=== PATIENT | male | born 1955 | race Caucasian/White ===

== ENCOUNTER 2021-01-22 09:01 | Outpatient (REF) | payer MEDICARE, SELFPAY ==
--- NOTE | ~2021-01-22 | XR_ITS ---
EXAMINATION: XR KNEE-BILATERAL CLINICAL INFORMATION: Pain in unspecified knee. COMPARISON: None TECHNIQUE: Upright frontal views of both knees. Lateral and patellofemoral views of both knees. FINDINGS: Right knee: The bony alignments are intact. Marked decrease joint space, subchondral sclerosis and osteophyte formations, consistent with severe medial and moderate to severe lateral compartmental and patellofemoral compartmental osteoarthrosis is seen. Small suprapatellar effusion is noted. Left knee: Decrease joint space, subchondral sclerosis, osteophyte formations, consistent with avhn-lu-qzllvjnd medial and lateral compartmental osteoarthrosis is present. The patellofemoral joint is normal. No evidence of any joint effusion. XR/XR knee standing BI IMPRESSION: 1. The right knee shows severe medial and moderate to severe lateral compartmental and patellofemoral osteoarthrosis. Small suprapatellar effusion is also noted. 2. The left knee shows ignq-lw-dgmcehfy medial and lateral compartmental osteoarthrosis and normal-appearing patellofemoral joint and no evidence of any effusion.
--- NOTE | ~2021-01-22 | XR_ITS ---
EXAMINATION: XR KNEE-BILATERAL CLINICAL INFORMATION: Pain in unspecified knee. COMPARISON: None TECHNIQUE: Upright frontal views of both knees. Lateral and patellofemoral views of both knees. FINDINGS: Right knee: The bony alignments are intact. Marked decrease joint space, subchondral sclerosis and osteophyte formations, consistent with severe medial and moderate to severe lateral compartmental and patellofemoral compartmental osteoarthrosis is seen. Small suprapatellar effusion is noted. Left knee: Decrease joint space, subchondral sclerosis, osteophyte formations, consistent with dzph-yd-rnqtjbxc medial and lateral compartmental osteoarthrosis is present. The patellofemoral joint is normal. No evidence of any joint effusion. XR/XR knee LT 2V IMPRESSION: 1. The right knee shows severe medial and moderate to severe lateral compartmental and patellofemoral osteoarthrosis. Small suprapatellar effusion is also noted. 2. The left knee shows gnie-vs-zhiauuhk medial and lateral compartmental osteoarthrosis and normal-appearing patellofemoral joint and no evidence of any effusion.
--- NOTE | ~2021-01-22 | XR_ITS ---
EXAMINATION: XR KNEE-BILATERAL CLINICAL INFORMATION: Pain in unspecified knee. COMPARISON: None TECHNIQUE: Upright frontal views of both knees. Lateral and patellofemoral views of both knees. FINDINGS: Right knee: The bony alignments are intact. Marked decrease joint space, subchondral sclerosis and osteophyte formations, consistent with severe medial and moderate to severe lateral compartmental and patellofemoral compartmental osteoarthrosis is seen. Small suprapatellar effusion is noted. Left knee: Decrease joint space, subchondral sclerosis, osteophyte formations, consistent with oqvb-cv-jngmrink medial and lateral compartmental osteoarthrosis is present. The patellofemoral joint is normal. No evidence of any joint effusion. XR/XR knee RT 2V IMPRESSION: 1. The right knee shows severe medial and moderate to severe lateral compartmental and patellofemoral osteoarthrosis. Small suprapatellar effusion is also noted. 2. The left knee shows rajk-sy-yinfwdgx medial and lateral compartmental osteoarthrosis and normal-appearing patellofemoral joint and no evidence of any effusion.
== END 2021-01-22 09:02 | disposition home or self-care (01) ==
LOC: HO.HOSX 09:01
PROVIDERS: Visit Provider Orthopaedic Surgery
DX: M17.0 Bilateral primary osteoarthritis of knee (principal)
CPT/HCPCS: 73560; 73565; 99202

== ENCOUNTER → 2021-04-10 09:58 | Outpatient (BNVA) | payer MEDICARE, SELFPAY | PROVIDERS: PCP Internal Medicine; Visit Provider Orthopaedic Surgery | DX: Z01.812 Encounter for preprocedural laboratory examination (principal); Z01.810 Encounter for preprocedural cardiovascular examination ==

== ENCOUNTER → 2021-05-10 13:16 | Outpatient (BNVA) | payer MEDICARE, SELFPAY | PROVIDERS: Visit Provider Physician Assistant | DX: Z01.818 Encounter for other preprocedural examination (principal); M17.31 Unilateral post-traumatic osteoarthritis, right knee; T14.90XS Injury, unspecified, sequela; M21.161 Varus deformity, not elsewhere classified, right knee | CPT/HCPCS: 99212 ==

== ENCOUNTER 2021-05-14 14:00 | Outpatient (RCR) | payer MEDICARE, SELFPAY ==
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
--- NOTE | 2021-05-14 15:33 | MHC.PT.DC ---
[facility] [place] Office [place] Office [place] Office [address] [phone] F: [phone] F: [phone] F: [phone] F: [phone] Physical Therapy Discharge Report Diagnosis: prehab for TKA Date of Surgery: n/a Date of Evaluation: 04/24/21 Date of Discharge: 05/14/21 Treatments to Date: 3 Cancellations to Date: 0 No Shows to Date: 0 Discharge Status: Discharge Summary: Pt is scheduled for R TKA tomorrow 05/15/2021. He has participated in prehab and is now independent in a basic strengthening program. He is aware of the importance of continuing this program post op. Due to plan for surgery tomorrow skilled PT is no longer indicated at this time. Pt will benefit from skilled PT services after his surgery. Electronically signed by: Aline Sargent, PT, DPT, ATC Please sign and return to therapist. Thank you for your referral.
== END 2021-05-14 15:33 | disposition home or self-care (01) ==
LOC: HO.PTCHIC 14:00
PROVIDERS: PCP Internal Medicine; Visit Provider Orthopaedic Surgery
DX: M17.31 Unilateral post-traumatic osteoarthritis, right knee (principal)
CPT/HCPCS: 97110; 97161

== ENCOUNTER 2021-05-15 06:13 | Inpatient (IN) | payer MEDICARE, SELFPAY ==
[2021-05-08 12:04] VITALS: BP 161/81; PULSE 87; RESP 20; O2SAT 98; BMI 25.0
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
[2021-05-08 14:48] LABS: MRSA Nasal PCR NEGATIVE (Negative); SA Nasal PCR NEGATIVE (Negative)
[2021-05-15] VITALS (18 sets, daily range): BP systolic 94–162; BP diastolic 49–88; PULSE 64–89; RESP 16–18; TEMP 36.3–37.2; O2SAT 99–100
--- NOTE | ~2021-05-15 | XR_ITS ---
EXAMINATION: XR KNEE, RIGHT CLINICAL INFORMATION: Right knee replacement COMPARISON: Previous x-ray January 2021 TECHNIQUE: Two views of the right knee. FINDINGS: There is a new 3 component right knee replacement in satisfactory position. No fracture or dislocation is seen. There are postoperative changes to the soft tissues. XR/XR knee RT 2V IMPRESSION: Satisfactory appearance of right knee replacement.
[2021-05-15] MEDS: Lactated Ringers 1,000 ML 100 ML IVCONT (07:01)
[2021-05-15 07:05] LABS: COVID-19 Test Negative (Negative); IDNOW Serial# 16C4AD1C
--- NOTE | 2021-05-15 07:40 | MHC.SHP ---
Pre-Procedural Eval Section A Date of Service: 05/15/21 The patient is an INPATIENT: No Changes since office visit: Yes Patient answered all questions; No Cold of Flu in the past 2 weeks, No New Medical Problems and No Changes in Medication The History & Physical has been completed within 30 days and I have reviewed it.: Yes Section B Chief Complaint: RT TKA Allergies: Allergies Allergy/AdvReac Type Severity Reaction Status Date / Time cortisone Allergy Anaphylaxis Verified 05/15/21 07:09 Plan I have reviewed the history and physical and performed a pertinent physical examination on my patient. No changes have occurred unless specified.
--- NOTE | 2021-05-15 09:40 | PM.OP ---
Brief Operative Note Date of Service: 05/15/21 Pre-op diagnosis: right knee OA Post-op diagnosis: same Procedure: Right TKA Implants: [place] triathalon press fit cruciate retaining 06/20/11 Surgeon: Rey Orlando MD Anesthesia: regional and spinal Was an Veterinary Surgery Technician used for this Procedure?: Yes Veterinary Surgery Technician: Chapincito Gilbert Estimated blood loss (mL): 150 IV fluids (mL): 1,000 Pathology: other Condition: stable Disposition: PACU
--- NOTE | 2021-05-15 09:44 | W.PM.OPN ---
Operative Note Operative Note Date of Service: 05/15/21 Narrative: Date of Service: 05/15/21 Pre-op diagnosis: right knee OA Post-op diagnosis: same Procedure: Right TKA Implants: [place] triathalon press fit cruciate retaining 06/20/11 Surgeon: Rey Orlando MD Anesthesia: regional and spinal Was an Performance Test Architect used for this Procedure?: Yes Performance Test Architect: Chapincito Gilbert Estimated blood loss (mL): 150 IV fluids (mL): 1,000 Pathology: other Condition: stable Disposition: PACU Procedure in detail: The patient was brought to the operating room and prepped and draped in standard sterile fashion. A time-out was called to identify proper site proper procedure proper surgeon and IV antibiotics were administered. 1 g of IV tranexamic acid was administered. I began by making a midline incision to the retinaculum and performed a medial parapatellar arthrotomy. The patella was translated laterally and the knee was flexed up. The medial compartment was entyirely eburnated with a depressed medial p[lateau . I performed a small medial peel and resected the infrapatellar fat pad. Leavenworth's line was then used to drill my intramedullary femoral guide and my distal femur cut of 10 mm was made in 5 degrees of valgus while protecting the soft tissues. I then measured a # 4 femur and placed my cutting guide and made my anterior posterior and chamfer cuts protecting the soft tissues at all times. Once I was satisfied with my cuts I turned my attention to the tibia. I removed the meniscus medially and laterally and , using an external cutting guide, in line with the tibial crest and the third ray, I made my distal tibial cut in 3 deg slope of while protecting the PCL the posterior soft tissues at all times. An extension block was used to confirm appropriate amount of bony resection. I then sized a #5 tibia and once I was satisfied that there was complete tibial coverage I placed my trial and with the trial femur in place took the knee through range of motion. I was satisfied with the extension and flexion as well as the stability at 0, 30 and 90 degrees. The knee was well balanced. I then turned my attention to the patella where I removed 1 cm from the undersurface of the patella and then trialed a 32a patellar button. Again the knee was taken through range of motion I was satisfied with the tracking. I returned to the femur and drilled my femoral lug holes and prepared the tibia. A femoral bone plug was placed and the knee was irrigated copiously. I then press fit the patella, tibia and femur in standard fashion. I trialed different inserts until I selected a #12 insert. The final insert was placed and a 3 minutes iodine soak with local TXA was performed. The knee was then closed with a running Quill suture, a 3 0 Vicryl and keily on the skin. Patient was then placed in sterile dressing and brought to recovery room in stable condition there were no known complications.
[2021-05-15] MEDS: Dextrose 5 % and 0.45 % NaCl 1,000 ML 80 ML IVCONT ×2 (10:24→21:18)
[2021-05-15] MEDS: oxyCODONE HCl Immed Release 5 MG TABLET PO ×3 (13:57→23:15)
[2021-05-15] MEDS: Acetaminophen 325 MG TABLET 975 MG PO (13:57)
[2021-05-15] MEDS: ceFAZolin Sodium/Dextrose,Iso 2 GM/50 ML PIGGYBACK IV (14:17)
[2021-05-15] MEDS: HYDROmorphone HCl 0.5 MG/0.5 ML SYRINGE IVPUSH (15:10)
[2021-05-15] MEDS: ondansetron HCL 4 MG/2 ML VIAL IVPUSH ×2 (15:17→17:53)
[2021-05-15] MEDS: HYDROmorphone HCl 1 MG/ML SYRINGE 0.25 MG IVPUSH (19:42)
[2021-05-15] MEDS: oxyCODONE HCl ER 10 MG TAB.ER.12H PO (21:17)
[2021-05-15] MEDS: Docusate Sodium 100 MG CAPSULE PO (21:17)
[2021-05-15] MEDS: Celecoxib 200 MG CAPSULE PO (21:17)
[2021-05-15] MEDS: Acetaminophen 325 MG TABLET 650 MG PO (22:32)
[2021-05-16] VITALS (7 sets, daily range): BP systolic 137–180; BP diastolic 64–84; PULSE 76–88; RESP 18; TEMP 36.1–37.1; O2SAT 100
[2021-05-16] MEDS: HYDROmorphone HCl 1 MG/ML SYRINGE 0.25 MG IVPUSH ×2 (00:49→05:13)
[2021-05-16] MEDS: oxyCODONE HCl Immed Release 5 MG TABLET PO ×4 (03:13→23:19)
[2021-05-16 06:23] LABS: Basophils Percent Auto 0.1 % (0-2); Eosinophils Percent Auto 0.1 % (0-4); Hematocrit 34.6 % (42.0-52.0); Imm Gran Abs Auto 0.06 X10*3/uL (0.00-0.03); Imm Gran Pct Auto 0.5 % (0.0-0.4); Lymphocytes Absolute Auto 1.3 X10*3/uL (1.2-4.9); Lymphocytes Percent Auto 10.2 % (20-40); MANUAL DIFF FLAG SCAN; Mean Corpuscular HGB Conc 34.7 g/dl (31.0-36.0); Mean Corpuscular Hemoglobin 31.2 pg (27.0-33.0); Mean Corpuscular Volume 89.9 fL (80.0-98.0); Mean Platelet Volume 9.5 fL (9.4-12.4); Monocytes Absolute Auto 1.9 X10*3/uL (0.1-1.2); Monocytes Percent Auto 14.5 % (2-11); Neutrophils Absolute Auto 9.8 x10*3/uL (2.0-8.3); Neutrophils Percent Auto 74.6 % (45-73); Platelet Count 203 X10*3/uL (160-400); Red Blood Count 3.85 X10*6/uL (4.60-5.80); Red Cell Distribution Width 12.7 % (11.0-16.0); SCAN SMEAR FLAG 1; White Blood Count 13.1 X10*3/uL (4.8-10.8)
[2021-05-16 06:41] LABS: SLIDE REVIEW VERIFIED
[2021-05-16 06:46] LABS: Anion Gap 9 (12-20); Blood Urea Nitrogen 13 mg/dL (9-16); Calcium 8.7 mg/dL (8.4-10.2); Carbon Dioxide 26 mmol/L (22-29); Chloride 98 mmol/L (96-108); Creatinine Clr Calc Pharmacy 99.7; Estimated Glomerular Filt Rate > 60; Glucose Fasting 142 mg/dL (60-99); Potassium 4.3 mmol/L (3.3-5.1); Sodium 129 mmol/L (135-145)
--- NOTE | 2021-05-16 07:42 | PM.PNORT ---
Subjective Subjective Date of Service: 05/16/21 Interval history: POD1 s/p RTKA. Patient is resting in bed comfortably. No overnight events. Pain is managed. No additional complaints. Physical Exam Vital Signs: Vital Signs: Last Vital Signs Temp 97 F 05/16/21 06:53 Pulse 86 05/16/21 07:32 Resp 18 05/16/21 06:53 BP 137/64 05/16/21 07:32 Pulse Ox 100 05/16/21 07:32 BMI result Body Mass Index 25.0 Const: General: cooperative, healthy appearing and no acute distress Resp: Effort & Inspection: normal respiratory effort and able to speak in complete sentences Cardio: Rate: regular rate Peripheral pulses: Peripheral pulses 2+ throughout GI: Palpation (GI): Soft to palpation Skin: Lesions: no lesions Rashes: no rashes Extrem: Other: Right knee no drainage or erythema. Aquacel is clean, dry, and intact. NVI. Procedures Date of Service Date of Service: 05/16/21 Progress Note: A&P Assessment and plan (1) S/P total knee arthroplasty: Status: Acute Plan Continue pain mgmnt Begin ASA for dvt ppx begin PT for RTKA Dispo planning-Pending PT eval, pain mgmnt Fall Risk Details Current Medications: Current Medications Acetaminophen (Acetaminophen 325 Mg Tablet) 650 mg PO Q6H PRN PRN Reason: Pain, Mild (Pain Scale 1-3) Last Admin: 05/15/21 22:32 Dose: 650 mg Documented by: Celecoxib (Celecoxib 200 Mg Capsule) 200 mg PO BID [facility] Last Admin: 05/15/21 21:17 Dose: 200 mg Documented by: Docusate Sodium (Docusate Sodium 100 Mg Capsule) 100 mg PO BID [facility] Last Admin: 05/15/21 21:17 Dose: 100 mg Documented by: Hydromorphone HCl (Hydromorphone Hcl 0.5 Mg/0.5 Ml Syringe) 0.5 mg IVPUSH Q5M PRN; Protocol PRN Reason: Pain, Severe (Pain Scale 7-10) Last Admin: 05/15/21 15:10 Dose: 0.5 mg Documented by: Hydromorphone HCl (Hydromorphone Hcl 1 Mg/Ml Syringe) 0.25 mg IVPUSH Q4H PRN; Protocol PRN Reason: Pain, Severe (Pain Scale 7-10) Last Admin: 05/16/21 05:13 Dose: 0.25 mg Documented by: Dextrose/Sodium Chloride (D51/2ns) 1,000 mls @ 80 mls/hr IVCONT .[id number] [facility] Last Admin: 05/15/21 21:18 Dose: 80 mls/hr Documented by: Cefazolin Sodium/Dextrose (Ancef) 2 gm in 50 mls @ 100 mls/hr IV POSTOP@1400 [facility] Last Infusion: 05/15/21 16:26 Dose: Infused Documented by: Ondansetron HCl (Ondansetron Hcl 4 Mg/2 Ml Vial) 4 mg IVPUSH Q8H PRN PRN Reason: Nausea and Vomiting Last Admin: 05/15/21 17:53 Dose: 4 mg Documented by: Oxycodone HCl (Oxycodone Hcl Immed Release 5 Mg Tablet) 5 mg PO Q4H PRN PRN Reason: Pain, Moderate (Pain Scale 4-6 Last Admin: 05/16/21 03:13 Dose: 5 mg Documented by: Oxycodone HCl (Oxycodone Hcl Er 10 Mg Tab.Er.12h) 10 mg PO BID [facility] Last Admin: 05/15/21 21:17 Dose: 10 mg Documented by: Sodium Chloride (0.9 % Sodium Chloride Flush 3 Ml Syringe) 3 ml IVFLUSH QSHIFT [facility] Last Admin: 05/16/21 01:03 Dose: Not Given Documented by: Time Spent With Patient Time: Total time spent is greater than 50% in coordination of care (as documented) at patient's floor/unit and/or counseling patient: Time with patient: less than 15 minutes Quality Stroke Does the patient have a stroke diagnosis?: No VTE Prior VTE?: No VTE Risk Level:: Surgical - very high VTE Device Contraindication: N/A - Device Ordered VTE Drug Contraindication: N/A - Med Ordered
[2021-05-16] MEDS: Celecoxib 200 MG CAPSULE PO ×2 (07:46→20:14)
[2021-05-16] MEDS: oxyCODONE HCl ER 10 MG TAB.ER.12H PO ×2 (07:46→20:13)
[2021-05-16] MEDS: Docusate Sodium 100 MG CAPSULE PO ×2 (07:46→20:14)
--- NOTE | 2021-05-16 08:15 | HO.POSTANES ---
Post Anesthesia Evaluation Post Anesthesia Evaluation Vital Signs: Vital Signs Temp Pulse Resp BP Pulse Ox 05/16/21 07:32 86 137/64 100 05/16/21 06:53 97 F 86 18 137/64 100 05/16/21 03:59 98.7 F 88 18 151/66 H 100 05/15/21 23:32 98.9 F 81 18 162/71 H 100 Anesthesia: Spinal and Nerve Block Mental Status: Awake Pain Control: Satisfactory Nausea/Vomiting: None Hydration: Adequate Anesthesia-Related Issues: No Anes. Related Issues
--- NOTE | 2021-05-16 08:40 | MHC.CDI.CONC ---
CDI Concurrent Query Documentation Clarification: PHYSICIAN'S DOCUMENTATION REQUEST Date of Query: 05/16/21 0840 Patient Name: Jamey Jimenez Admit Date: 05/15/21 Dear Doctor, A review of the medical record indicates additional documentation may be needed. Please review below and update the documentation accordingly. Additional clinical indicators in the record include: Risk Factors/Clinical Indicators/Treatments Lab findings: sodium 129 L IV fluids Please indicate in your progress notes if you are in agreement that the above diagnosis is valid for this patient: Hyponatremia or other etiology of lab findings: Yes, [ ] is a valid diagnosis for this patient No, [ ] is a not a valid diagnosis for this patient The diagnosis of [ ] is not yet confirmed but remains a suspected condition (This option is only for use at the time of discharge or during a retrospective review.) Other (please specify) Unable to determine Use of terms such as suspected, likely, concern for, or probable (associated with a specific diagnosis that is being evaluated, monitored, or treated as if it exists) are acceptable and can be coded in the inpatient setting, when documented at the time of discharge. Thank you, Carolyn Brice [facility], CDIS Extension: [phone] Please use your independent medical judgment in providing your response. THIS QUERY IS PART OF THE PERMANENT MEDICAL RECORD
[2021-05-16] MEDS: Aspirin 325 MG TABLET PO ×2 (09:13→20:13)
--- NOTE | 2021-05-16 09:59 | MHC.CM.PN ---
PATIENT LIVES WITH /NEW HCP (IN CHART) HE IS INDEPENDENT WITH HIS ADLS. HE DOES USE OUTSIDE SERVICES FOR PHYSICAL THERAPY. HE IS AWARE OF P.T. RECOMMENDATIONS FOR HOME SERVICES AND CHOOSES [facility], NOW PLACED. HE IS AWARE THAT [facility] HAS BEEN UNABLE TO OFFER SERVICES OF RECENTLY, AND AGREEABLE TO WHICH EVER AGENCY CAN OFFER. PATIENT IS COVID VACCINATED WITH 3 MODERNA SHOTS. HE IS UNABLE TO RECALL THE DATES BUT WILL ASK FOR CASE MANAGEMENT IF HE FINDS OUT. CANE AND WALKER IN HOME IN PREPARATION FOR SURGERY. TO TRANSPORT HOME. IMM 3/2 IN CHART
[2021-05-16] MEDS: ondansetron HCL 4 MG/2 ML VIAL IVPUSH (10:23)
[2021-05-16] MEDS: Dextrose 5 % and 0.45 % NaCl 1,000 ML 80 ML IVCONT ×2 (10:23→23:15)
[2021-05-16] MEDS: 0.9 % Sodium Chloride Flush 3 ML SYRINGE IVFLUSH (23:16)
[2021-05-17] VITALS (9 sets, daily range): BP systolic 142–180; BP diastolic 57–88; PULSE 81–98; RESP 14–18; TEMP 36.1–37.1; O2SAT 98–100
[2021-05-17] MEDS: oxyCODONE HCl Immed Release 5 MG TABLET PO ×2 (03:02→13:20)
[2021-05-17] MEDS: Omeprazole 20 MG CAPSULE.DR PO (05:47)
[2021-05-17 06:33] LABS: Basophils Percent Auto 0.1 % (0-2); Eosinophils Percent Auto 0.1 % (0-4); Hematocrit 30.8 % (42.0-52.0); Hemoglobin 10.6 g/dl (14.0-18.0); Imm Gran Pct Auto 0.7 % (0.0-0.4); Lymphocytes Absolute Auto 1.1 X10*3/uL (1.2-4.9); Lymphocytes Percent Auto 7.2 % (20-40); MANUAL DIFF FLAG SCAN; Mean Corpuscular HGB Conc 34.4 g/dl (31.0-36.0); Mean Corpuscular Hemoglobin 31.2 pg (27.0-33.0); Mean Corpuscular Volume 90.6 fL (80.0-98.0); Mean Platelet Volume 9.9 fL (9.4-12.4); Monocytes Absolute Auto 1.8 X10*3/uL (0.1-1.2); Neutrophils Absolute Auto 11.9 x10*3/uL (2.0-8.3); Neutrophils Percent Auto 79.9 % (45-73); Platelet Count 184 X10*3/uL (160-400); Red Cell Distribution Width 12.5 % (11.0-16.0); SCAN SMEAR FLAG 1; White Blood Count 14.9 X10*3/uL (4.8-10.8)
[2021-05-17 06:52] LABS: Anion Gap 9 (12-20); Blood Urea Nitrogen 9 mg/dL (9-16); Calcium 8.5 mg/dL (8.4-10.2); Carbon Dioxide 24 mmol/L (22-29); Estimated Glomerular Filt Rate > 60; Glucose Fasting 129 mg/dL (60-99)
[2021-05-17 07:13] LABS: Chloride 96 mmol/L (96-108); Sodium 125 mmol/L (135-145)
[2021-05-17 07:30] LABS: SLIDE REVIEW VERIFIED
[2021-05-17] MEDS: Aspirin 325 MG TABLET PO ×2 (08:30→20:44)
[2021-05-17] MEDS: Celecoxib 200 MG CAPSULE PO ×2 (08:30→20:44)
[2021-05-17] MEDS: Docusate Sodium 100 MG CAPSULE PO ×2 (08:30→20:44)
[2021-05-17] MEDS: oxyCODONE HCl ER 10 MG TAB.ER.12H PO ×2 (08:30→20:44)
[2021-05-17] MEDS: lisinopriL 10 MG TABLET PO (08:31)
[2021-05-17] MEDS: 0.9 % Sodium Chloride Flush 3 ML SYRINGE IVFLUSH ×3 (08:31→20:47)
--- NOTE | 2021-05-17 08:35 | P.CONHOSP_ITS ---
History of Present Illness Data of Consult Service Date: 05/17/21 Primary Care Provider: Sharonda Parsons MD HPI Reason for consult: hyponatremia This is a 65 yo M with a PMH of HTN, GERD, OA who is admitted under the or thopedic services s/p R TKA. Medical consult requested for hyponatremia. Patient is seen and examined in his room. He reports some generalized weakness. Pain well controlled this morning. In regards to his oral intake, he rpeorts drinking about 1L of water since surgery. Denies chest pain, sob, abd pain, n/v. No fevers Review of Systems Review of Systems: negative except above [facility] Medical History Abnormal gait Anxiety Difficulty urinating GERD (gastroesophageal reflux disease) Hypertension Osteoarthritis Vertigo Pertinent family history: HTN in multiple family betters Surgical History H/O prostatectomy History of esophagogastroduodenoscopy (EGD) History of intestinal surgery History of tonsillectomy Hx of colonoscopy S/P colostomy Social History (Updated 05/17/21 @ 09:38 by Harris Amin MD) Are you a primary manager critical care to a significant other at home: No Do you presently have visiting nurse or other home services: No Alcohol intake: current Alcohol intake frequency: 0-2 drinks per day Patient Tobacco Use Status: Never used Tobacco Second Hand Smoke Exposure: No Substance Use Type: Marijuana service: No Current occupational status: employed 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 [employer] Allergies Allergy/AdvReac Type Severity Reaction Status Date / Time cortisone Allergy Anaphylaxis Verified 05/15/21 07:09 Active Medications: Current Medications Acetaminophen (Acetaminophen 325 Mg Tablet) 650 mg PO Q6H PRN PRN Reason: Pain, Mild (Pain Scale 1-3) Last Admin: 05/15/21 22:32 Dose: 650 mg Documented by: Aspirin (Aspirin 325 Mg Tablet) 325 mg PO BID [facility] Last Admin: 05/17/21 08:30 Dose: 325 mg Documented by: Celecoxib (Celecoxib 200 Mg Capsule) 200 mg PO BID [facility] Last Admin: 05/17/21 08:30 Dose: 200 mg Documented by: Docusate Sodium (Docusate Sodium 100 Mg Capsule) 100 mg PO BID [facility] Last Admin: 05/17/21 08:30 Dose: 100 mg Documented by: Hydromorphone HCl (Hydromorphone Hcl 0.5 Mg/0.5 Ml Syringe) 0.5 mg IVPUSH Q5M PRN; Protocol PRN Reason: Pain, Severe (Pain Scale 7-10) Last Admin: 05/15/21 15:10 Dose: 0.5 mg Documented by: Hydromorphone HCl (Hydromorphone Hcl 1 Mg/Ml Syringe) 0.25 mg IVPUSH Q4H PRN; Protocol PRN Reason: Pain, Severe (Pain Scale 7-10) Last Admin: 05/16/21 05:13 Dose: 0.25 mg Documented by: Lisinopril (Lisinopril 10 Mg Tablet) 10 mg PO DAILY [facility]; Protocol Last Admin: 05/17/21 08:31 Dose: 10 mg Documented by: Loratadine (Loratadine 10 Mg Tablet) 10 mg PO DAILY PRN PRN Reason: Allergic Symptoms Omeprazole (Omeprazole 20 Mg Capsule.Dr) 20 mg PO DAILY@0630 [facility] Last Admin: 05/17/21 05:47 Dose: 20 mg Documented by: Ondansetron HCl (Ondansetron Hcl 4 Mg/2 Ml Vial) 4 mg IVPUSH Q8H PRN PRN Reason: Nausea and Vomiting Last Admin: 05/16/21 10:23 Dose: 4 mg Documented by: Oxycodone HCl (Oxycodone Hcl Immed Release 5 Mg Tablet) 5 mg PO Q4H PRN PRN Reason: Pain, Moderate (Pain Scale 4-6 Last Admin: 05/17/21 03:02 Dose: 5 mg Documented by: Oxycodone HCl (Oxycodone Hcl Er 10 Mg Tab.Er.12h) 10 mg PO BID [facility] Last Admin: 05/17/21 08:30 Dose: 10 mg Documented by: Sodium Chloride (0.9 % Sodium Chloride Flush 3 Ml Syringe) 3 ml IVFLUSH [facility] Last Admin: 05/17/21 08:31 Dose: 3 ml Documented by: Home Medications Medication Instructions Recorded Confirmed Last Taken Type cetirizine 10 mg capsule (Zyrtec) 10 mg PO DAILY PRN 01/22/21 05/04/21 Unknown History lisinopril 10 mg tablet 10 mg PO DAILY 01/22/21 05/04/21 Unknown History pantoprazole 40 mg tablet,delayed 40 mg PO DAILY 01/22/21 05/04/21 Unknown History release Ca/Mg/Zinc PO 04/10/21 04/10/21 Unknown History ascorbic acid (vitamin C) 500 mg 500 mg PO DAILY 05/04/21 05/04/21 Unknown History tablet (Vitamin C) docusate sodium 100 mg capsule 100 mg PO DAILY 05/04/21 05/04/21 Unknown History (Colace) multivitamin 1 tab PO DAILY 05/04/21 05/04/21 Unknown History ibuprofen 200 mg capsule 400 mg PO Q8H PRN 05/08/21 05/08/21 Unknown History Physical Exam Vital Signs and Narrative: Vital Signs: Last Vital Signs Temp 97.6 F 05/17/21 03:59 Pulse 93 05/17/21 03:59 Resp 14 05/17/21 03:59 BP 180/70 H 05/17/21 03:59 Pulse Ox 99 05/17/21 03:59 BMI result Body Mass Index 25.0 Const: Other: Constitutional - Awake and Alert, No apparent distress Eyes - PERRLA, EOMI Cardiovascular - S1S2, RRR, No edema Respiratory - Normal lung expansion, Normal respiratory effort, No respiratory distress, CTA bilaterally Gastrointestinal - NT / ND; +BS; No rebound or guarding - No CVA tenderness Extremities - no calf tenderness bilaterally, no swelling Musculoskeletal - normal inspection Skin - Warm/Dry Neurological - Alert & oriented x3, No focal deficit Psychological - Appropriate affect Results Labs CBC and Chem 7: 05/17/21 05:56 05/17/21 05:56 Labs: Laboratory Results - last 24 hr 05/17/21 05/17/21 05:56 05:56 MCV 90.6 MCH 31.2 MCHC 34.4 RDW 12.5 Plt Count 184 MPV 9.9 Immature Gran % (Auto) 0.7 H Neut % (Auto) 79.9 H Lymph % (Auto) 7.2 L [place] % (Auto) 12.0 H Eos % (Auto) 0.1 Baso % (Auto) 0.1 Lymph # (Auto) 1.1 L [place] # (Auto) 1.8 H Eos # (Auto) 0.0 Baso # (Auto) 0.0 Abs Immat Gran (auto) 0.10 H Absolute Neuts (auto) 11.9 H Absolute Nucleated RBC 0.000 Nucleated RBC % (auto) 0.0 Smear Tech's Comments VERIFIED Anion Gap 9 L Estim Creat Clear Calc 111.0 Estimated GFR > 60 Fasting Glucose 129 H Calcium 8.5 Assessment and Plan (1) Hyponatremia: Status: Acute Plan This is a 65 yo M with a PMH of HTN, GERD, OA who is admitted s/p R TKA under the orthpedic services. Medical consult requested for hyponatremia. 1. Hyponatremia symptomatic with weakness hypovoluemic Stop D5-1/2 - done Check urine Osm, Na -- ordered Fluid restrict -- ordered repeat SNa around noon -- ordered 2. Uncontrolled HTN possibly due to pain continue lisinopril 3. GERD PPI Will follow along
[2021-05-17 10:55] LABS: Sodium 125 mmol/L (135-145)
[2021-05-17 11:19] LABS: Osmolality Urine 385 mosm/kg (373-1093)
[2021-05-17] MEDS: Acetaminophen 325 MG TABLET 650 MG PO (13:21)
--- NOTE | 2021-05-17 15:19 | MHC.CM.PN ---
PT DC CANCELLED DUE TO ABORMAL LABS
--- NOTE | 2021-05-17 20:25 | P.PNOP_ITS ---
Subjective Subjective Date of Service: 05/17/21 Interval history: POD 2 s/p RT TKA no overnight events resting in bed, had PT yesterday and did well Na levels are on the lower side, med consult placed. Physical Exam Vital Signs: Vital Signs: Last Vital Signs Temp 98.7 F 05/17/21 19:03 Pulse 85 05/17/21 19:03 Resp 18 05/17/21 19:03 BP 149/88 H 05/17/21 19:03 Pulse Ox 98 05/17/21 19:03 BMI result Body Mass Index 25.0 Const: General: cooperative, healthy appearing and no acute distress Resp: Effort & Inspection: normal respiratory effort and able to speak in complete sentences Cardio: Rate: regular rate Peripheral pulses: Peripheral pulses 2+ throughout GI: Palpation (GI): Soft to palpation Skin: General skin exam: no rashes or lesions noted Extrem: Other: incision clean dry and intact. [place] intact. No erythema or joint effusion. Calf supple nontender. Neurovascularly intact. Procedures Date of Service Date of Service: 05/17/21 Progress Note: A&P Assessment and plan (1) S/P total knee arthroplasty: Status: Acute Assessment and Plan: * Continue pain mgmnt * continue Aspirin for dvt ppx * continue PT for RT TKA * Dispo planning-Pending Na levels (2) Hyponatremia: Status: Acute Assessment and Plan: Med consult-recommend fluid restriction will recheck in the morning Fall Risk Details Current Medications: Current Medications Acetaminophen (Acetaminophen 325 Mg Tablet) 650 mg PO Q6H PRN PRN Reason: Pain, Mild (Pain Scale 1-3) Last Admin: 05/17/21 13:21 Dose: 650 mg Documented by: Aspirin (Aspirin 325 Mg Tablet) 325 mg PO BID [facility] Last Admin: 05/17/21 08:30 Dose: 325 mg Documented by: Celecoxib (Celecoxib 200 Mg Capsule) 200 mg PO BID [facility] Last Admin: 05/17/21 08:30 Dose: 200 mg Documented by: Docusate Sodium (Docusate Sodium 100 Mg Capsule) 100 mg PO BID [facility] Last Admin: 05/17/21 08:30 Dose: 100 mg Documented by: Hydromorphone HCl (Hydromorphone Hcl 0.5 Mg/0.5 Ml Syringe) 0.5 mg IVPUSH Q5M PRN; Protocol PRN Reason: Pain, Severe (Pain Scale 7-10) Last Admin: 05/15/21 15:10 Dose: 0.5 mg Documented by: Hydromorphone HCl (Hydromorphone Hcl 1 Mg/Ml Syringe) 0.25 mg IVPUSH Q4H PRN; Protocol PRN Reason: Pain, Severe (Pain Scale 7-10) Last Admin: 05/16/21 05:13 Dose: 0.25 mg Documented by: Lisinopril (Lisinopril 10 Mg Tablet) 10 mg PO DAILY [facility]; Protocol Last Admin: 05/17/21 08:31 Dose: 10 mg Documented by: Loratadine (Loratadine 10 Mg Tablet) 10 mg PO DAILY PRN PRN Reason: Allergic Symptoms Omeprazole (Omeprazole 20 Mg Capsule.Dr) 20 mg PO DAILY@0630 [facility] Last Admin: 05/17/21 05:47 Dose: 20 mg Documented by: Ondansetron HCl (Ondansetron Hcl 4 Mg/2 Ml Vial) 4 mg IVPUSH Q8H PRN PRN Reason: Nausea and Vomiting Last Admin: 05/16/21 10:23 Dose: 4 mg Documented by: Oxycodone HCl (Oxycodone Hcl Immed Release 5 Mg Tablet) 5 mg PO Q4H PRN PRN Reason: Pain, Moderate (Pain Scale 4-6 Last Admin: 05/17/21 13:20 Dose: 5 mg Documented by: Oxycodone HCl (Oxycodone Hcl Er 10 Mg Tab.Er.12h) 10 mg PO BID [facility] Last Admin: 05/17/21 08:30 Dose: 10 mg Documented by: Sodium Chloride (0.9 % Sodium Chloride Flush 3 Ml Syringe) [facility] Last Admin: 05/17/21 17:30 Dose: 3 ml Documented by: Time Spent With Patient Time: Total time spent is greater than 50% in coordination of care (as documented) at patient's floor/unit and/or counseling patient: Time with patient: less than 15 minutes Quality Stroke Does the patient have a stroke diagnosis?: No VTE Prior VTE?: No VTE Risk Level:: Surgical - very high VTE Device Contraindication: N/A - Device Ordered VTE Drug Contraindication: N/A - Med Ordered
[2021-05-18] MEDS: oxyCODONE HCl Immed Release 5 MG TABLET PO (03:14)
[2021-05-18 03:52] VITALS: BP 134/62; PULSE 98; RESP 101; TEMP 36.4; O2SAT 98
[2021-05-18 05:45] LABS: MANUAL DIFF FLAG NO
[2021-05-18 05:52] LABS: Basophils Percent Auto 0.3 % (0-2); Eosinophils Absolute Auto 0.1 X10*3/uL (0.0-0.4); Eosinophils Percent Auto 0.6 % (0-4); Hematocrit 28.7 % (42.0-52.0); Hemoglobin 9.9 g/dl (14.0-18.0); Imm Gran Abs Auto 0.05 X10*3/uL (0.00-0.03); Imm Gran Pct Auto 0.5 % (0.0-0.4); Lymphocytes Percent Auto 9.3 % (20-40); Mean Corpuscular HGB Conc 34.5 g/dl (31.0-36.0); Mean Corpuscular Hemoglobin 31.1 pg (27.0-33.0); Mean Corpuscular Volume 90.3 fL (80.0-98.0); Mean Platelet Volume 9.7 fL (9.4-12.4); Monocytes Absolute Auto 1.4 X10*3/uL (0.1-1.2); Monocytes Percent Auto 13.2 % (2-11); Neutrophils Percent Auto 76.1 % (45-73); Platelet Count 201 X10*3/uL (160-400); Red Blood Count 3.18 X10*6/uL (4.60-5.80); Red Cell Distribution Width 12.5 % (11.0-16.0); White Blood Count 10.5 X10*3/uL (4.8-10.8)
[2021-05-18] MEDS: Omeprazole 20 MG CAPSULE.DR PO (05:58)
[2021-05-18 06:47] VITALS: BP 133/63; PULSE 109; RESP 18; TEMP 36.1; O2SAT 100
[2021-05-18 07:01] LABS: Anion Gap 8 (12-20); Blood Urea Nitrogen 9 mg/dL (9-16); Calcium 8.8 mg/dL (8.4-10.2); Carbon Dioxide 30 mmol/L (22-29); Chloride 98 mmol/L (96-108); Creatinine Clr Calc Pharmacy 99.7; Estimated Glomerular Filt Rate > 60; Glucose Fasting 97 mg/dL (60-99); Potassium 4.5 mmol/L (3.3-5.1); Sodium 131 mmol/L (135-145)
[2021-05-18] MEDS: oxyCODONE HCl ER 10 MG TAB.ER.12H PO (07:53)
[2021-05-18] MEDS: Docusate Sodium 100 MG CAPSULE PO (07:53)
[2021-05-18] MEDS: Aspirin 325 MG TABLET PO (07:54)
[2021-05-18] MEDS: Celecoxib 200 MG CAPSULE PO (07:55)
[2021-05-18] MEDS: lisinopriL 10 MG TABLET PO (07:55)
[2021-05-18] MEDS: 0.9 % Sodium Chloride Flush 3 ML SYRINGE IVFLUSH (08:00)
--- NOTE | 2021-05-18 08:06 | P.DS_ITS ---
DS: Providers Provider Date of Service: 05/18/21 Date of admission: 05/15/21 06:13 Primary care physician: Sharonda Parsons MD Consults: 05/16/21 21:16 Consult to Hospitalist Routine Consulting Provider: Hospitalist Reason For Exam: ?hyponatremia DS: Diagnosis Discharge Diagnosis (1) S/P total knee arthroplasty: Status: Acute (2) Hyponatremia: Status: Acute DS: Summary Hospital Course Hospital Course: The patient underwent a successful right total knee arthroplasty, they were transferred to PACU and then to the floor to recover. During their stay, their vitals were stable, afebrile at 97 degrees. Patient had about of hyponatremia on postop day postop day 1 this was corrected with fluid restriction, H/H 9.9/28.7. POD 1 they were started on Aspirin 325mg po bid for DVT ppx, they also received Physical Therapy services twice a day. Prior to discharge, their dressing was changed, incision clean dry and intact, new Aquacel dressing applied and the plan was to be discharged home with VNA services. Time Spent with Patient Time attestation: Total time spent providing and/or coordinating discharge services: Discharge coordination time: Less than 30 minutes Quality: Stroke Does the patient have a stroke diagnosis?: No Physical Exam Vital Signs: Vital Signs: Last Vital Signs Temp 97 F 05/18/21 06:47 Pulse 109 H 05/18/21 06:47 Resp 18 05/18/21 06:47 BP 133/63 05/18/21 06:47 Pulse Ox 100 05/18/21 06:47 BMI result Body Mass Index 25.0 Const: General: cooperative, healthy appearing and no acute distress Resp: Effort & Inspection: normal respiratory effort and able to speak in complete sentences Cardio: Rate: regular rate Peripheral pulses: Peripheral pulses 2+ throughout GI: Palpation (GI): Soft to palpation Skin: Lesions: no lesions Rashes: no rashes Extrem: Other: Right knee Aquacel dressing clean dry and intact. No drainage. NVI. DS: Data Data Completed and Pending Completed studies during hospitalization [Text1]: Pending at discharge 05/15/21 09:14 Surgical [PTH] Routine Labs on day of discharge: Laboratory Results - last 24 hr 05/17/21 05/17/21 05/17/21 10:02 10:02 10:33 WBC RBC Hgb Hct MCV MCH MCHC RDW Plt Count MPV Immature Gran % (Auto) Neut % (Auto) Lymph % (Auto) [place] % (Auto) Eos % (Auto) Baso % (Auto) Lymph # (Auto) [place] # (Auto) Eos # (Auto) Baso # (Auto) Abs Immat Gran (auto) Absolute Neuts (auto) Absolute Nucleated RBC Nucleated RBC % (auto) Sodium 125 L Potassium Chloride Carbon Dioxide Anion Gap BUN Creatinine Estim Creat Clear Calc Estimated GFR Fasting Glucose Calcium Urine Osmolality 385 Ur Random Sodium 33.0 05/18/21 05/18/21 05:16 05:16 WBC 10.5 RBC 3.18 L Hgb 9.9 L Hct 28.7 L MCV 90.3 MCH 31.1 MCHC 34.5 RDW 12.5 Plt Count 201 MPV 9.7 Immature Gran % (Auto) 0.5 H Neut % (Auto) 76.1 H Lymph % (Auto) 9.3 L [place] % (Auto) 13.2 H Eos % (Auto) 0.6 Baso % (Auto) 0.3 Lymph # (Auto) 1.0 L [place] # (Auto) 1.4 H Eos # (Auto) 0.1 Baso # (Auto) 0.0 Abs Immat Gran (auto) 0.05 H Absolute Neuts (auto) 8.0 Absolute Nucleated RBC 0.000 Nucleated RBC % (auto) 0.0 Sodium 131 L Potassium 4.5 Chloride 98 Carbon Dioxide 30 H Anion Gap 8 L BUN 9 Creatinine 0.69 Estim Creat Clear Calc 99.7 Estimated GFR > 60 Fasting Glucose 97 Calcium 8.8 Urine Osmolality Ur Random Sodium Discharge Plan Discharge Patient Disposition: Home Health Service Discharge Diagnosis: Status post right TKA Referrals: Chapincito Gilbert PA-C [Physician Retort Firer] - 1 Week (05/31/2021 at 11:30am) Discharge Medications: New celecoxib 200 mg Capsule 200 mg PO BID 30 Days Qty: 60 0RF acetaminophen 325 mg Tablet 650 mg PO Q6H PRN (Reason: Pain, Mild (Pain Scale 1-3)) 30 Days Qty: 240 0RF aspirin 325 mg Tablet 325 mg PO BID 42 Days Qty: 84 0RF docusate sodium 100 mg Capsule 100 mg PO BID 30 Days Qty: 60 0RF oxycodone 5 mg Tablet 5 mg PO Q4H PRN (Reason: Pain, Moderate (Pain Scale 4-6) 7 Days Qty: 42 0RF Continued multivitamin Tablet 1 tab PO DAILY 0RF docusate sodium [Colace] 100 mg Capsule 100 mg PO DAILY 0RF ascorbic acid (vitamin C) [Vitamin C] 500 mg Tablet 500 mg PO DAILY 0RF ibuprofen 200 mg Capsule 400 mg PO Q8H PRN (Reason: Pain) 0RF lisinopril 10 mg tablet 10 mg PO DAILY 0RF pantoprazole 40 mg tablet,delayed release (DR/EC) 40 mg PO DAILY 0RF Zyrtec 10 mg capsule 10 mg PO DAILY PRN (Reason: Allergic Symptoms) 0RF Ca/Mg/Zinc 1 tab PO 0RF Discharge Orders: Discharge Order (Routine); Ordered 05/18/21 Ordered By: Tammy Evans Diet: advance to usual diet Activity on Discharge: Use cane or walker Stand Alone Forms: Patient Portal Discharge page Care Plan Goals: Her store function to right knee Health Concerns: None Plan of Treatment: Physical Therapy for ROM 0-120, quad strength, gait training. Use walker for ambulation Limit stair climbing, No shower, No tub bath, No driving Continue anticoagulant Keep Aquacel dressing clean, dry and intact. Follow up with orthopedics in 2 weeks Assessment: Stable for discharge
--- NOTE | 2021-05-18 08:12 | W.MHC.F2F ---
Service Date Service Date: 05/18/21 Encounter Date of encounter: 05/18/21 Reasons for Services Signs and symptoms assessed: Pt. is considered homebound due to recent surgery. Unable to drive, poor balance, poor gait mechanics. Reason for physical therapy: home safety and mobility, therapeutic exercises, restore joint function, gait/transfer training, assess need for DME and ADL training Homebound: Leaving the home is medically contraindicated at this time without the asist of a device and/or another person due th the listed conditions above and below. Reason homebound: unsteady gait / fall risk, pain with ambulation, pain with transfers, poor balance / fall risk and unable to drive Homebound supporting statement: Pt. is considered homebound due to recent surgery. Unable to drive, poor balance, poor gait mechanics. Certification: Based on the above findings, I certify that this patient is confined to the home and needs intermittent senior care care, physical therapy and/or speech therapy, or continues to need occupational therapy. The patient is under my care, and I have initiated the establishment of the plan of care. The patient will be followed by a physician who will periodically review the plan of care.
[2021-05-18 08:25] VITALS: BP 133/63; PULSE 109; O2SAT 100
--- NOTE | 2021-05-18 10:04 | MHC.CM.PN ---
nurse casey saw operator note electronic meidcal rexord reviewed along with case discussed with staff nurse , met with patient he is aware of discharge today . discharge plan- home with new referral with the [facility] for home physical therapy, transportation family pcp mandy quintana patient instructed to call for post hospitla dischagre follow up orthopedic surgical follow up per discharge instructiosn , medicare immm 05/16/21
--- NOTE | 2021-05-18 13:50 | P.PNIM_ITS ---
Subjective Subjective Date of Service: 05/18/21 Interval History: Feeling better weakness resolved good pain control, no dizziness, denies nausea vomiting, following fluid restriction. Review of Systems Review of Systems: Yes all other systems are reviewed and are negative Physical Exam Vital Signs: Vital Signs: Last Vital Signs Temp 97 F 05/18/21 06:47 Pulse 109 H 05/18/21 08:25 Resp 18 05/18/21 06:47 BP 133/63 05/18/21 08:25 Pulse Ox 100 05/18/21 08:25 BMI result Body Mass Index 25.0 Const: Other: Constitutional - A wake and Alert, No apparent distress Neck supple, no JVD Cardiovascular -? S1S2, RRR Resp iratory - clear to auscultation, no respiratory distre ss Gastrointestina l -?nontender, BS positive, No rebou nd or guarding - No CVA tendernes s Extremities - no swelling Right kn ee dressing in alyssa ce Skin - Warm/Dry Neurological -? A lert & oriented x3 , No focal deficit Psychological - A ppropriate affect Objective Data Labs CBC & Chem 7: 05/18/21 05:16 05/18/21 05:16 Labs: Laboratory Results - last 24 hr 05/18/21 05/18/21 05:16 05:16 MCV 90.3 MCH 31.1 MCHC 34.5 RDW 12.5 Plt Count 201 MPV 9.7 Immature Gran % (Auto) 0.5 H Neut % (Auto) 76.1 H Lymph % (Auto) 9.3 L [place] % (Auto) 13.2 H Eos % (Auto) 0.6 Baso % (Auto) 0.3 Lymph # (Auto) 1.0 L [place] # (Auto) 1.4 H Eos # (Auto) 0.1 Baso # (Auto) 0.0 Abs Immat Gran (auto) 0.05 H Absolute Neuts (auto) 8.0 Absolute Nucleated RBC 0.000 Nucleated RBC % (auto) 0.0 Anion Gap 8 L Estim Creat Clear Calc 99.7 Estimated GFR > 60 Fasting Glucose 97 Calcium 8.8 Assessment and Plan (1) Hyponatremia: Status: Acute (2) S/P total knee arthroplasty: Status: Acute Plan 65 yo M with a PMH of HTN, GERD, OA who is admitted s/p R TKA under the orthpedic services. Medical consult requested for hyponatremia. 1. Hyponatremia Likely due to free water intake ,pain and D5 half-normal saline, sodium improved to 131, symptoms of weakness resolved Recommend to follow electrolytes in 1 week 2. Uncontrolled HTN, was likely due to pain, BP improved continue lisinopril 3. GERD cont. PPI 4. Status post right TKA management as per Ortho Will sign off. Quality Stroke Does the patient have a stroke diagnosis?: No VTE Prior VTE?: No VTE Risk Level:: Surgical - very high VTE Device Contraindication: N/A - Device Ordered VTE Drug Contraindication: N/A - Med Ordered
== END 2021-05-18 12:05 | disposition home health service (06) | DRG 470 ==
LOC: HO.SSSA 06:18 → HO.S3 15:39
PROVIDERS: Family Medicine; Physician Assistant; Admitting Provider Orthopaedic Surgery; PCP Internal Medicine; Visit Provider Orthopaedic Surgery
PROC: 0SRC0JA Replacement of Right Knee Joint with Synthetic Substitute, Uncemented, Open Approach (ICD-10-PCS; CPT 27447; principal; 2021-05-15 07:30)
DX: M17.11 Unilateral primary osteoarthritis, right knee (principal); E87.1 Hypo-osmolality and hyponatremia; I10 Essential (primary) hypertension; K21.9 Gastro-esophageal reflux disease without esophagitis; F41.9 Anxiety disorder, unspecified; Z20.822 Contact with and (suspected) exposure to COVID-19; Z79.899 Other long term (current) drug therapy
CPT/HCPCS: 36415; 73560; 80048; 83935; 84295; 84300; 85025; 86850; 86900; 86901; 87635; 87640; 87641; 88305; 88311; 97110; 97116; 97162; 97530; C1776; J0690; J1100; J1170; J2250; J2370; J2405

== ENCOUNTER → 2021-05-31 11:28 | Outpatient (BNVA) | payer MEDICARE, SELFPAY | PROVIDERS: PCP Internal Medicine; Visit Provider Physician Assistant | DX: Z47.1 Aftercare following joint replacement surgery (principal); Z48.02 Encounter for removal of sutures; Z96.651 Presence of right artificial knee joint | CPT/HCPCS: 99212 ==

== ENCOUNTER 2021-06-28 11:00 | Outpatient (RCR) | payer MEDICARE, SELFPAY ==
--- NOTE | 2021-05-31 14:33 | MHC.PT.EP ---
[facility] [place] Office [place] Office [place] Office [address] Radha Andrade [address] [phone] F: [phone] F: [phone] F: [phone] F: [phone] Physical Therapy Plan of Care Date of Evaluation: Date of Surgery: 05/15/21 Diagnosis: R TKA on 05/15/21 Assessment: pt presents to physical therapy with pain, decreased range of motion, decreased strength, impaired functional mobility, impaired postural awareness, and gait deviations. pt is a good candidate for skilled PT due to age, potential remediation of impairments, typical disease/condition progression and prognosis, comorbidities, and motivation. pt would benefit from tailored strengthening and stretching exercise program, functional training, gait training, postural re-training, neuromuscular re-education, modalities as needed for pain, equipment safety demonstration. Frequency and Duration: The patient will be seen 2x/wk for 6 wks Short Term Goals: pt will be I w/ HEP to promote self-management of condition. pt will perform sit to stand transfer in one attempt w/o weight shift to L LE mod I level. Pedigree Researcher Goals: pt will report a statistically significant improvement in self-reported outcome measure, LEFI, to promote return to PLOF. pt will ascend/descend 14 stairs mod I level using reciprocal pattern to promote improved access to primary living spaces. Treatment Plan: Modalities to reduce pain, spasms and effusion. Manual therapy to restore motion and function. Therapeutic exercise to improve strength and flexibility. Neuromuscular re-education for posture and balance. Therapeutic activities to return to functional activities of daily living. Electronically signed by: Ana Larsen PT, DPT Please sign and return to therapist. Thank you for your referral.
--- NOTE | 2021-06-28 15:15 | MHC.PT.DC ---
[facility] [place] Office [place] Office [place] Office [address] Radha Andrade [address] [phone] F: [phone] F: [phone] F: [phone] F: [phone] Physical Therapy Discharge Report Diagnosis: R TKA on 05/15/21 Date of Surgery: 05/15/21 Date of Evaluation: 05/31/21 Date of Discharge: 06/28/21 Treatments to Date: 9 Cancellations to Date: 0 No Shows to Date: 0 Discharge Status: Achieved Goals Improved Function Independent with HEP Discharge Summary: 06/28: Hardeep reports that he feels ready for DC. I educated him on 2 more sessions booked but today we did a quick re-assessment. He demos 5/5 hip and knee MMT, 0-134 knee ROM with AROM of 0-132. He demos normal gait without AD and tolerates reciprocal gait on the stairs. He is I in his program and ready for DC at this time. He has a thorough HEP to continue, DC to HEP. Electronically signed by: Raine Foster PT Please sign and return to therapist. Thank you for your referral.
== END 2021-06-28 15:15 | disposition home or self-care (01) ==
LOC: HO.PTCHIC 11:00
PROVIDERS: Visit Provider Physician Assistant
DX: M17.31 Unilateral post-traumatic osteoarthritis, right knee (principal)
CPT/HCPCS: 97110; 97162; 97530

== ENCOUNTER → 2021-06-28 14:28 | Outpatient (BNVA) | payer MEDICARE, SELFPAY | PROVIDERS: PCP Internal Medicine; Visit Provider Physician Assistant | DX: Z47.1 Aftercare following joint replacement surgery (principal); Z96.659 Presence of unspecified artificial knee joint | CPT/HCPCS: 99212 ==

== ENCOUNTER 2021-08-09 12:15 | Outpatient (REF) | payer MEDICARE, SELFPAY ==
--- NOTE | ~2021-08-09 | XR_ITS ---
EXAMINATION: XR KNEE, RIGHT XR KNEE AP STANDING CLINICAL INFORMATION: Pain. COMPARISON: None TECHNIQUE: Lateral and axial views of the right knee are obtained. AP bilateral standing view of the knees was obtained. FINDINGS: Prosthetic components of the right total knee arthroplasty are appropriately aligned without periprosthetic fracture or lucency. No component migration. No joint effusion. There is symmetric mild to moderate narrowing of the left lateral and medial joint, with mild peripheral osteophyte formation. XR/XR knee RT 2V IMPRESSION: 1. Appropriate alignment of the right total knee arthroplasty. 2. There is mild osteoarthritic change of the lateral and medial joint space compartments of the left knee.
--- NOTE | ~2021-08-09 | XR_ITS ---
EXAMINATION: XR KNEE, RIGHT XR KNEE AP STANDING CLINICAL INFORMATION: Pain. COMPARISON: None TECHNIQUE: Lateral and axial views of the right knee are obtained. AP bilateral standing view of the knees was obtained. FINDINGS: Prosthetic components of the right total knee arthroplasty are appropriately aligned without periprosthetic fracture or lucency. No component migration. No joint effusion. There is symmetric mild to moderate narrowing of the left lateral and medial joint, with mild peripheral osteophyte formation. XR/XR knee standing BI IMPRESSION: 1. Appropriate alignment of the right total knee arthroplasty. 2. There is mild osteoarthritic change of the lateral and medial joint space compartments of the left knee.
== END 2021-08-09 12:16 | disposition home or self-care (01) ==
LOC: HO.HOSX 12:15
PROVIDERS: Visit Provider Orthopaedic Surgery
DX: Z47.1 Aftercare following joint replacement surgery (principal); Z96.651 Presence of right artificial knee joint
CPT/HCPCS: 73560; 73565; 99212

== ENCOUNTER → 2021-12-28 13:16 | Outpatient (BNVA) | payer MEDICARE, SELFPAY | PROVIDERS: PCP Internal Medicine; Visit Provider Physician Assistant | DX: M17.12 Unilateral primary osteoarthritis, left knee (principal) | CPT/HCPCS: 99212 ==

== ENCOUNTER → 2022-01-14 14:14 | Outpatient (BNVA) | payer MEDICARE, SELFPAY | PROVIDERS: PCP Internal Medicine; Visit Provider Orthopaedic Surgery | DX: M17.12 Unilateral primary osteoarthritis, left knee (principal); Z96.659 Presence of unspecified artificial knee joint | CPT/HCPCS: 99212 ==

== ENCOUNTER 2022-04-25 08:50 | Outpatient (REF) | payer MEDICARE, SELFPAY ==
--- NOTE | ~2022-04-25 | XR_ITS ---
EXAMINATION: XR KNEE, LEFT CLINICAL INFORMATION: Pain. COMPARISON: Radiographs dated 08/09/2021. TECHNIQUE: Lateral and axial views of the left knee are submitted. FINDINGS: Bony alignment and mineralization are normal. No fracture or dislocation is seen. The patellofemoral compartment is well-maintained. No joint effusion is seen. No abnormal soft tissue calcification. XR/XR knee LT 2V IMPRESSION: Unremarkable left knee radiographs.
== END 2022-04-25 08:51 | disposition home or self-care (01) ==
LOC: HO.HOSX 08:50
PROVIDERS: Visit Provider Physician Assistant
DX: M17.12 Unilateral primary osteoarthritis, left knee (principal)
CPT/HCPCS: 73560; 99212

== ENCOUNTER → 2022-05-09 11:13 | Outpatient (BNVA) | payer MEDICARE, SELFPAY | PROVIDERS: PCP Internal Medicine; Visit Provider Physician Assistant | DX: Z13.89 Encounter for screening for other disorder (principal) ==

== ENCOUNTER 2022-05-15 05:53 | Day surgery (SDC) | payer MEDICARE, SELFPAY ==
[2022-04-23 13:09] VITALS: BP 144/79; PULSE 82; RESP 20; O2SAT 98; BMI 26.6
[2022-04-23 15:28] LABS: MRSA Nasal PCR NEGATIVE (Negative); SA Nasal PCR NEGATIVE (Negative)
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
[2022-05-15] VITALS (17 sets, daily range): BP systolic 98–167; BP diastolic 57–90; PULSE 65–92; RESP 16–18; TEMP 36.1–36.9; O2SAT 95–100
--- NOTE | ~2022-05-15 | XR_ITS ---
EXAMINATION: XR KNEE, LEFT CLINICAL INFORMATION: Status post left total knee replacement. COMPARISON: Left knee radiographs dated 04/25/2022. TECHNIQUE: Two views of the left knee. FINDINGS: The patient is status post left knee arthroplasty showing good anatomic alignment and no evidence for hardware malfunction. There is no acute fracture. Intra-articular and subcutaneous air is noted. Multiple surgical skin keily are seen anteriorly. XR/XR knee LT 2V IMPRESSION: Post surgical changes. No hardware abnormality.
[2022-05-15 06:49] LABS: COVID-19 Test Negative (Negative); IDNOW Serial# 9DB6401D
[2022-05-15] MEDS: Lactated Ringers 1,000 ML 100 ML IVCONT ×2 (06:58→14:27)
[2022-05-15 06:59] LABS: Hematocrit 40.2 % (42.0-52.0); Hemoglobin 14.3 g/dl (14.0-18.0)
--- NOTE | 2022-05-15 07:23 | MHC.SHP ---
Pre-Procedural Eval Section A Date of Service: 05/15/22 The patient is an INPATIENT: No Changes since office visit: No Cold of Flu in the past 2 weeks, No New Medical Problems, No Changes in Medication and No Patient answered all questions The History & Physical has been completed within 30 days and I have reviewed it.: Yes Section B Chief Complaint: Unilateral primary osteoarthritis, left knee Allergies: Allergies Allergy/AdvReac Type Severity Reaction Status Date / Time cortisone Allergy Severe Anaphylaxis Verified 05/15/22 06:11 Plan I have reviewed the history and physical and performed a pertinent physical examination on my patient. No changes have occurred unless specified. Time Spent With Patient Time: Total time managing care of this patient today ____ minutes.
--- NOTE | 2022-05-15 09:03 | P.BOP_ITS ---
Brief Operative Note Date of Service: 05/15/22 Pre-op diagnosis: Left knee OA Post-op diagnosis: same Procedure: Left TKA Implants: [place] Triathlon cruciate retaining press fit 06/19/12/32a Surgeon: Rey Orlando MD Anesthesia: regional and spinal Was an Director Of State used for this Procedure?: Yes Director Of State: Tammy Evans Estimated blood loss (mL): 150 IV fluids (mL): 1,000 Pathology: other Condition: stable Disposition: PACU
--- NOTE | 2022-05-15 09:05 | P.OP_ITS ---
Operative Note Operative Note Date of Service: 05/15/22 Narrative: Date of Service: 05/15/22 Pre-op diagnosis: Left knee OA Post-op diagnosis: same Procedure: Left TKA Implants: [place] Triathlon cruciate retaining press fit 06/19/13cr/32a Surgeon: Rey Orlando MD Anesthesia: regional and spinal Was an Nutrition Services Aide used for this Procedure?: Yes Nutrition Services Aide: Tammy Evans Estimated blood loss (mL): 150 IV fluids (mL): 1,000 Pathology: other Condition: stable Disposition: PACU Procedure in detail: The patient was brought to the operating room and prepped and draped in standard sterile fashion. A time-out was called to identify proper site proper procedure proper surgeon and IV antibiotics were administered. 1 g of IV tranexamic acid was administered. I began by making a midline incision to the retinaculum and performed a medial parapatellar arthrotomy. The patella was translated laterally and the knee was flexed up. There was medial compartment eburnation . I performed a small medial peel and resected the infrapatellar fat pad. Arenac's line was then used to drill my intramedullary femoral guide and my distal femur cut of 10 mm was made in 5 degrees of valgus while protecting the soft tissues. I then measured a # 4 femur and placed my cutting guide and made my anterior posterior and chamfer cuts protecting the soft tissues at all times. Once I was satisfied with my cuts I turned my attention to the tibia. I removed the meniscus medially and laterally and , using an external cutting guide, in line with the tibial crest and the third ray, I made my distal tibial cut in 3 deg slope of while protecting the PCL the posterior soft tissues at all times. An extension block was used to confirm appropriate amount of bony resection. I then sized a #5 tibia and once I was satisfied that there was complete tibial coverage I placed my trial and with the trial femur in place took the knee through range of motion. I was satisfied with the extension and flexion as well as the stability and balance at 0, 30 and 90 degrees. I then turned my attention to the patella where I removed 1 cm from the undersurface of the patella and then trialed a32a patellar button. Again the knee was taken through range of motion I was satisfied with the tracking. I then returned to the femur and drilled my femoral lug holes and prepared the tibia. A femoral bone plug was placed and the knee was irrigated copiously. I then press fit the patella, tibia and femur in standard fashion. I trialed different inserts until I selected a #13 insert. The final insert was placed and a 3 minutes iodine soak with local TXA was performed. A Werewolf cautery wand was used to maintain hemostasis over the capsule and meniscal beds, the gutters and peripatellar soft tissues. The knee was then closed with a running Quill suture, a 3 0 Vicryl and keily on the skin. Patient was then placed in sterile dressing and brought to recovery room in stable condition there were no known complications.
--- NOTE | 2022-05-15 09:21 | PHA.MEDREC ---
Pharmacy Consult ? Medication Reconciliation Pharmacy has reviewed the medication reconciliation completed by nursing. Leila Cherry, RobertaD
--- NOTE | 2022-05-15 11:01 | PM.UROCN ---
History of Present Illness Consult details Consult date: 05/15/22 Narrative: CC: Urinary retention/nursing unable to place Oropeza catheter HPI: Prior urethral surgery Retention after TKR Oropeza catheter placed by urologic staff member. Good efflux of urine. See nursing note for description of total output. Catheter DC when able to stand on post surgical floor Review of Systems Constitutional: Constitutional: Reports as per HPI and Reports no additional constitutional complaints Cardiovascular: Cardiovascular: Reports as per HPI and Reports no additional cardiovascular complaints Respiratory: Respiratory: Reports as per HPI and Reports no additional respiratory complaints Gastrointestinal: Gastrointestinal: Reports as per HPI and Reports no additional gastrointestinal complaints Genitourinary: Genitourinary: Reports as per HPI Musculoskeletal: Musculoskeletal: Reports no additional musculoskeletal complaints and Reports as per HPI Neurologic: Reports system reviewed and no additional complaints, except as documented and Reports as per HPI [facility] Past Medical History Medical History (Updated 05/15/22 @ 11:02 by Real Wasserman MD) Abnormal gait Anxiety Crushing injury Difficulty urinating GERD (gastroesophageal reflux disease) History of blood transfusion Hypertension Hyponatremia Osteoarthritis Vertigo Surgical History Surgical History H/O prostatectomy History of colostomy reversal History of esophagogastroduodenoscopy (EGD) History of intestinal surgery History of tonsillectomy History of total right knee replacement (TKR) Hx of colonoscopy S/P colostomy Social History Social History Are you a primary respiratory care practitioner to a significant other at home: No Do you presently have visiting nurse or other home services: No Alcohol intake: current Alcohol intake frequency: 0-2 drinks per day Patient Tobacco Use Status: Never used Tobacco Second Hand Smoke Exposure: No Use of substances other than those prescribed or required for medical reasons: No Substance Use Type: Marijuana Substance Use Frequency: Daily Have you been hit, kicked, punched, or otherwise hurt by someone within the past year? 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 [employer] Allergies Allergy/AdvReac Type Severity Reaction Status Date / Time cortisone Allergy Severe Anaphylaxis Verified 05/15/22 06:11 Active Medications: Current Medications Acetaminophen (Acetaminophen 325 Mg Tablet) 650 mg PO Q6H PRN PRN Reason: Pain, Mild (Pain Scale 1-3) Ascorbic Acid (Ascorbic Acid 500 Mg Tablet) 500 mg PO DAILY [facility] Aspirin (Aspirin 325 Mg Tablet) 325 mg PO BID [facility] Celecoxib (Celecoxib 200 Mg Capsule) 200 mg PO BID [facility] Docusate Sodium (Docusate Sodium 100 Mg Capsule) 100 mg PO BID [facility] Hydromorphone HCl (Hydromorphone Hcl 0.5 Mg/0.5 Ml Syringe) 0.25 mg IVPUSH Q4H PRN; Protocol PRN Reason: Pain, Severe (Pain Scale 7-10) Lactated Ringer's (Lr) 1,000 mls @ 100 mls/hr IVCONT .Q10H [facility] Last Admin: 05/15/22 06:58 Dose: 100 mls/hr Lactated Ringer's (Lr) 1,000 mls @ 100 mls/hr IVCONT .Q10H [facility] Cefazolin Sodium/Dextrose (Ancef) 2 gm in 50 mls @ 100 mls/hr IV POSTOP ONE Stop: 05/15/22 14:29 Lisinopril (Lisinopril 10 Mg Tablet) 10 mg PO DAILY [facility]; Protocol Loratadine (Loratadine 10 Mg Tablet) 10 mg PO DAILY PRN PRN Reason: Allergic Symptoms Non-Formulary Medication (Calcium Carb-Mag Oxide-Vit D3 [Calcium Magnesium + D]) 1 tab PO DAILY [facility] Omeprazole (Omeprazole 20 Mg Capsule.Dr) 20 mg PO DAILY@0630 [facility] Ondansetron HCl (Ondansetron Hcl 4 Mg/2 Ml Vial) 4 mg IVPUSH ONCE PRN PRN Reason: Nausea and Vomiting Ondansetron HCl (Ondansetron Hcl 4 Mg/2 Ml Vial) 4 mg IVPUSH Q8H PRN PRN Reason: Nausea Oxycodone HCl (Oxycodone Hcl Immed Release 5 Mg Tablet) 5 mg PO ONCE PRN PRN Reason: Pain, Severe (Pain Scale 7-10) Oxycodone HCl (Oxycodone Hcl Immed Release 5 Mg Tablet) 5 mg PO Q4H PRN PRN Reason: Pain, Moderate (Pain Scale 4-6 Oxycodone HCl (Oxycodone Hcl Er 10 Mg Tab.Er.12h) 10 mg PO BID [facility] Sodium Chloride (0.9 % Sodium Chloride Flush 3 Ml Syringe) 3 ml IVFLUSH QSHIFT [facility] Tizanidine HCl (Tizanidine Hcl 4 Mg Tablet) 4 mg PO BEDTIME PRN PRN Reason: muscle spasm Home Medications Medication Instructions Recorded Confirmed Last Taken Type cetirizine 10 mg capsule (Zyrtec) 10 mg PO DAILY PRN Allergic 01/22/21 05/15/22 05/14/22 History Symptoms lisinopril 10 mg tablet 10 mg PO DAILY 01/22/21 05/15/22 05/14/22 History ascorbic acid (vitamin C) 500 mg 500 mg PO DAILY 05/04/21 05/15/22 05/14/22 History tablet (Vitamin C) multivitamin 1 tab PO DAILY 05/04/21 05/15/22 05/14/22 History pantoprazole 20 mg tablet,delayed 20 mg PO DAILY 12/28/21 05/15/22 05/15/22 05:30 History release calcium carb-magnesium oxide-vit 1 tab PO DAILY 04/22/22 05/15/22 05/14/22 History D3 400 mg-167 mg-133 unit tablet (Calcium Magnesium + D) sennosides 8.6 mg-docusate sodium 2 tab-cap PO BEDTIME 04/22/22 05/15/22 05/14/22 History 50 mg tablet tizanidine 4 mg tablet 1 tab PO BEDTIME PRN muscle spasm 04/22/22 05/15/22 Unknown History Physical Exam Vital Signs: Vital Signs: Last Vital Signs Temp 97 F 05/15/22 10:15 Pulse 84 05/15/22 10:15 Resp 16 05/15/22 10:15 BP 115/64 05/15/22 10:15 Pulse Ox 99 05/15/22 10:15 O2 Del Method 05/15/22 10:15 BMI result Body Mass Index 26.6 Const: General: cooperative, healthy appearing, comfortable and no acute distress Orientation/consciousness: patient oriented x3 HEENT: Face and sinus: Yes normal facial exam Mouth: moist mucous membranes Neck: Neck: Yes normal visual inspection, Yes full ROM and Yes trachea midline Chest: Chest palpation & inspection: normal inspection of the chest Resp: Effort & Inspection: normal respiratory effort, able to speak in complete sentences and no respiratory distress GI: Inspection: Yes normal to inspection Back/Spine/Pelvis: Cervical Spine: normal cervical lordosis Thoracic/Lumbar Spine: thoracic and lumbar spine normal to inspection Skin: General skin exam: no rashes or lesions noted Neuro: General: patient oriented x3, tone normal and moves all extremities Extrem: General: Yes normal to inspection and Yes capillary refill normal Results Labs 05/15/22 06:43 Labs: Abnormal lab results 05/15/22 Range/Units 06:43 Hct 40.2 L D (42.0-52.0) % Short CBC 05/15/22 Range/Units 06:43 Hgb 14.3 D (14.0-18.0) g/dl Hct 40.2 L D (42.0-52.0) % All other labs normal. Assessment and Plan (1) Difficulty urinating: Status: Acute Plan Catheter removal when able to stand Time Spent With Patient Time: Total time managing care of this patient today ____ minutes. Procedures Date of Service Date of Service: 05/15/22 Catheter Insertion (Urinary) Replacement of catheter present on admission: No Reason for placing: Acute urinary retention Bladder scan/ultrasound used before catheterization: No Antiseptic solution prep: Povidone-Iodine Topical anesthesia used: Yes Catheter type/location: 2-way Urethral Size (Maori): 12 Catheter balloon size (mL): 10 Results: consulted Procedure performed: without complications
[2022-05-15] MEDS: Acetaminophen 325 MG TABLET 650 MG PO (12:51)
[2022-05-15] MEDS: oxyCODONE HCl ER 10 MG TAB.ER.12H PO ×2 (12:51→19:54)
[2022-05-15] MEDS: oxyCODONE HCl Immed Release 5 MG TABLET PO ×3 (12:51→19:53)
[2022-05-15] MEDS: HYDROmorphone HCl 0.5 MG/0.5 ML SYRINGE 0.25 MG IVPUSH (12:52)
--- NOTE | 2022-05-15 13:53 | HO.PM.IMCN ---
History of Present Illness Data of Consult Service Date: 05/15/22 Requesting physician: Tammy Evans Primary Care Provider: Sharonda Parsons MD HPI Reason for consult: medical management 66-year-old male with history of anxiety, GERD, hypertension, osteoarthritis admitted to Orthopedic surgery for management of osteoarthritis of left knee s/p left TKA pod 0 with consult placed to hospital service for routine medical management. He is reporting mild abd pain. No associated nausea, vomiting, diarrhea, anorexia. Also reporting 4/10 left hip/low back pain which is chronic. No radiation, no bowel/bladder dysfunction, paresthesias, weakness. No other complaints. Review of Systems Review of Systems: General: No fevers, malaise, unintentional weight loss HEENT: No blurred vision, diplopia. No sore throat, nasal congestion, rhinorrhea, sinus pain, ear pain Cardiovascular: No chest pain, palpitations, or leg edema Respiratory: No shortness of breath, wheezing, cough GI: +abd pain. No nausea, vomiting, diarrhea, constipation, melena, hematochezia : No dysuria, hematuria, increased urinary frequency, decreased urinary output MSK: No myalgia. +back/left hip pain Neuro: No headaches, weakness, paresthesias Skin: No rashes or lesions [facility] Medical History (Updated 05/15/22 @ 16:40 by MIMI Smith) Abnormal gait Anxiety Crushing injury Difficulty urinating GERD (gastroesophageal reflux disease) History of blood transfusion Hypertension Hyponatremia Osteoarthritis Urethral injury Vertigo Surgical History H/O prostatectomy History of colostomy reversal History of esophagogastroduodenoscopy (EGD) History of intestinal surgery History of tonsillectomy History of total right knee replacement (TKR) Hx of colonoscopy S/P colostomy Social History Are you a primary daytime caregiver to a significant other at home: No Do you presently have visiting nurse or other home services: No Alcohol intake: current Alcohol intake frequency: 0-2 drinks per day Patient Tobacco Use Status: Never used Tobacco Second Hand Smoke Exposure: No Use of substances other than those prescribed or required for medical reasons: No Substance Use Type: Marijuana Substance Use Frequency: Daily Currently Displaying Signs/Symptoms of Drug Intoxication Withdrawal: No Have you been hit, kicked, punched, or otherwise hurt by someone within the past year? 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 [employer] Allergies Allergy/AdvReac Type Severity Reaction Status Date / Time cortisone Allergy Severe Anaphylaxis Verified 05/15/22 06:11 Active Medications: Current Medications Acetaminophen (Acetaminophen 325 Mg Tablet) 650 mg PO Q6H PRN PRN Reason: Pain, Mild (Pain Scale 1-3) Last Admin: 05/15/22 12:51 Dose: 650 mg Ascorbic Acid (Ascorbic Acid 500 Mg Tablet) 500 mg PO DAILY [facility] Aspirin (Aspirin 325 Mg Tablet) 325 mg PO BID [facility] Celecoxib (Celecoxib 200 Mg Capsule) 200 mg PO BID [facility] Docusate Sodium (Docusate Sodium 100 Mg Capsule) 100 mg PO BID [facility] Hydromorphone HCl (Hydromorphone Hcl 0.5 Mg/0.5 Ml Syringe) 0.25 mg IVPUSH Q4H PRN; Protocol PRN Reason: Pain, Severe (Pain Scale 7-10) Last Admin: 05/15/22 12:52 Dose: 0.25 mg Lactated Ringer's (Lr) 1,000 mls @ 100 mls/hr IVCONT .Q10H [facility] Last Admin: 05/15/22 06:58 Dose: 100 mls/hr Lactated Ringer's (Lr) 1,000 mls @ 100 mls/hr IVCONT .Q10H [facility] Cefazolin Sodium/Dextrose (Ancef) 2 gm in 50 mls @ 100 mls/hr IV POSTOP ONE Stop: 05/15/22 14:29 Lisinopril (Lisinopril 10 Mg Tablet) 10 mg PO DAILY [facility]; Protocol Loratadine (Loratadine 10 Mg Tablet) 10 mg PO DAILY PRN PRN Reason: Allergic Symptoms Non-Formulary Medication (Calcium Carb-Mag Oxide-Vit D3 [Calcium Magnesium + D]) 1 tab PO DAILY [facility] Omeprazole (Omeprazole 20 Mg Capsule.Dr) 20 mg PO DAILY@0630 [facility] Ondansetron HCl (Ondansetron Hcl 4 Mg/2 Ml Vial) 4 mg IVPUSH ONCE PRN PRN Reason: Nausea and Vomiting Ondansetron HCl (Ondansetron Hcl 4 Mg/2 Ml Vial) 4 mg IVPUSH Q8H PRN PRN Reason: Nausea Oxycodone HCl (Oxycodone Hcl Immed Release 5 Mg Tablet) 5 mg PO Q4H PRN PRN Reason: Pain, Moderate (Pain Scale 4-6 Oxycodone HCl (Oxycodone Hcl Er 10 Mg Tab.Er.12h) 10 mg PO BID [facility] Last Admin: 05/15/22 12:51 Dose: 10 mg Sodium Chloride (0.9 % Sodium Chloride Flush 3 Ml Syringe) 3 ml IVFLUSH QSHIFT [facility] Tizanidine HCl (Tizanidine Hcl 4 Mg Tablet) 4 mg PO BEDTIME PRN PRN Reason: muscle spasm Home Medications Medication Instructions Recorded Confirmed Last Taken Type cetirizine 10 mg capsule (Zyrtec) 10 mg PO DAILY PRN Allergic 01/22/21 05/15/22 05/14/22 History Symptoms lisinopril 10 mg tablet 10 mg PO DAILY 01/22/21 05/15/22 05/14/22 History ascorbic acid (vitamin C) 500 mg 500 mg PO DAILY 05/04/21 05/15/22 05/14/22 History tablet (Vitamin C) multivitamin 1 tab PO DAILY 05/04/21 05/15/22 05/14/22 History pantoprazole 20 mg tablet,delayed 20 mg PO DAILY 12/28/21 05/15/22 05/15/22 05:30 History release calcium carb-magnesium oxide-vit 1 tab PO DAILY 04/22/22 05/15/22 05/14/22 History D3 400 mg-167 mg-133 unit tablet (Calcium Magnesium + D) sennosides 8.6 mg-docusate sodium 2 tab-cap PO BEDTIME 04/22/22 05/15/22 05/14/22 History 50 mg tablet tizanidine 4 mg tablet 1 tab PO BEDTIME PRN muscle spasm 04/22/22 05/15/22 Unknown History Physical Exam Vital Signs and Narrative: Vital Signs: Last Vital Signs Temp 97 F 05/15/22 12:43 Pulse 92 05/15/22 12:57 Resp 16 05/15/22 12:57 BP 143/68 H 05/15/22 12:57 Pulse Ox 99 05/15/22 12:57 O2 Del Method 05/15/22 12:57 BMI result Body Mass Index 26.6 Constitutional - Awake and Alert, No apparent distress Eyes - PERRLA, EOMI Cardiovascular - S1S2, RRR, No edema Respiratory - Normal lung expansion, Normal respiratory effort, No respiratory distress, CTA bilaterally Gastrointestinal - NT / ND; +BS; No rebound or guarding Extremities - no calf tenderness bilaterally, no swelling Musculoskeletal -ttp left low back/SI joint Skin - Warm/Dry Neurological - Alert & oriented x3, CN II-XII in tact, 5/5 strength BUE and BLE Psychological - Appropriate affect Results Labs 05/15/22 06:43 Labs: Laboratory Results - last 24 hr 05/15/22 05/15/22 06:20 06:45 COVID-19 ([facility]) Negative COVID-19 Clin Com See Note Blood Type O Positive Antibody Screen NEGATIVE Imaging Radiologist's Impressions: Impressions Knee X-Ray 05/15/22 10:34 IMPRESSION: Post surgical changes. No hardware abnormality. Assessment and Plan (1) Routine medical exam: Status: Acute Plan 66-year-old male with history of anxiety, GERD, hypertension, osteoarthritis admitted to Orthopedic surgery for management of osteoarthritis of left knee s/p left TKA pod 0 with consult placed to hospital service for routine medical management. #Left knee osteoarthritis s/p TKA POD 0 -plan per ortho surgery # hypertension -resume lisinopril a.m. -monitor BP # GERD -continue PPI # chronic low back pain -pain management per Orthopedic surgery -use tizanidine at bedtime p.r.n. -add lidocaine patch #Chronic hyponatremia -Na stable Thank you for allowing me to participate in this consult. Signing off at this time. Please do not hesitate to call for further questions. Time Spent With Patient Time: Total time managing care of this patient today ____ minutes.
[2022-05-15] MEDS: ceFAZolin Sodium/Dextrose,Iso 2 GM/50 ML PIGGYBACK IV (14:27)
[2022-05-15] MEDS: 0.9 % Sodium Chloride Flush 3 ML SYRINGE IVFLUSH (14:29)
[2022-05-15] MEDS: Lidocaine 4 % Patch ADH..PATCH 1 PATCH TRANSDERMA (17:10)
[2022-05-15] MEDS: ondansetron HCL 4 MG/2 ML VIAL IVPUSH (17:15)
[2022-05-15] MEDS: Docusate Sodium 100 MG CAPSULE PO (19:53)
[2022-05-15] MEDS: Celecoxib 200 MG CAPSULE PO (19:54)
[2022-05-16] VITALS (7 sets, daily range): BP systolic 162–178; BP diastolic 70–86; PULSE 88–95; RESP 18; TEMP 36.3–37.7; O2SAT 98–100
[2022-05-16] MEDS: Acetaminophen 325 MG TABLET 650 MG PO ×2 (00:14→19:50)
[2022-05-16] MEDS: oxyCODONE HCl Immed Release 5 MG TABLET PO ×4 (00:14→19:48)
[2022-05-16] MEDS: Lactated Ringers 1,000 ML 100 ML IVCONT (00:19)
[2022-05-16] MEDS: ondansetron HCL 4 MG/2 ML VIAL IVPUSH ×3 (03:22→19:48)
[2022-05-16] MEDS: HYDROmorphone HCl 0.5 MG/0.5 ML SYRINGE 0.25 MG IVPUSH ×3 (03:27→13:37)
[2022-05-16] MEDS: Omeprazole 20 MG CAPSULE.DR PO (05:34)
[2022-05-16 06:13] LABS: Basophils Percent Auto 0.1 % (0-2); Eosinophils Percent Auto 0.1 % (0-4); Hemoglobin 12.2 g/dl (14.0-18.0); Imm Gran Abs Auto 0.08 X10*3/uL (0.00-0.03); Imm Gran Pct Auto 0.6 % (0.0-0.4); Lymphocytes Absolute Auto 0.8 X10*3/uL (1.2-4.9); Lymphocytes Percent Auto 5.8 % (20-40); MANUAL DIFF FLAG SCAN; Mean Corpuscular HGB Conc 34.9 g/dl (31.0-36.0); Mean Corpuscular Volume 88.8 fL (80.0-98.0); Mean Platelet Volume 9.6 fL (9.4-12.4); Monocytes Absolute Auto 1.8 X10*3/uL (0.1-1.2); Monocytes Percent Auto 12.5 % (2-11); Neutrophils Absolute Auto 11.8 x10*3/uL (2.0-8.3); Neutrophils Percent Auto 80.9 % (45-73); Platelet Count 212 X10*3/uL (160-400); Red Blood Count 3.94 X10*6/uL (4.60-5.80); Red Cell Distribution Width 12.1 % (11.0-16.0); SCAN SMEAR FLAG 1; White Blood Count 14.5 X10*3/uL (4.8-10.8)
[2022-05-16 06:35] LABS: Anion Gap 11 (12-20); Blood Urea Nitrogen 11 mg/dL (9-16); Calcium 8.7 mg/dL (8.4-10.2); Carbon Dioxide 27 mmol/L (22-29); Chloride 94 mmol/L (96-108); Creatinine Clr Calc Pharmacy 100.8; Estimated Glomerular Filt Rate > 60; Glucose Fasting 139 mg/dL (60-99); Potassium 4.2 mmol/L (3.3-5.1); Sodium 128 mmol/L (135-145)
[2022-05-16 06:38] LABS: SLIDE REVIEW VERIFIED
[2022-05-16] MEDS: Aspirin 325 MG TABLET PO ×2 (07:55→19:49)
[2022-05-16] MEDS: oxyCODONE HCl ER 10 MG TAB.ER.12H PO ×2 (07:55→19:49)
[2022-05-16] MEDS: lisinopriL 10 MG TABLET PO (07:55)
[2022-05-16] MEDS: Celecoxib 200 MG CAPSULE PO ×2 (07:55→19:49)
[2022-05-16] MEDS: Docusate Sodium 100 MG CAPSULE PO ×2 (07:56→19:49)
[2022-05-16] MEDS: Lidocaine 4 % Patch ADH..PATCH 1 PATCH TRANSDERMA (07:56)
[2022-05-16] MEDS: Ascorbic Acid 500 MG TABLET PO (07:56)
[2022-05-16] MEDS: 0.9 % Sodium Chloride Flush 3 ML SYRINGE IVFLUSH ×3 (08:00→19:50)
--- NOTE | 2022-05-16 09:17 | PM.PNORT ---
Subjective Subjective Date of Service: 05/16/22 Interval history: POD1 s/p RTKA, No overnight events. Pain is managed. Reporting nausea. No additional complaints. Physical Exam Vital Signs: Vital Signs: Last Vital Signs Temp 99.8 F 05/16/22 07:48 Pulse 95 05/16/22 07:48 Resp 18 05/16/22 07:48 BP 162/70 H 05/16/22 08:32 Pulse Ox 99 05/16/22 07:48 O2 Del Method 05/16/22 07:48 BMI result Body Mass Index 26.6 Const: General: cooperative, healthy appearing and no acute distress Resp: Effort & Inspection: normal respiratory effort and able to speak in complete sentences Cardio: Rate: regular rate Peripheral pulses: Peripheral pulses 2+ throughout GI: Palpation (GI): Soft to palpation Skin: Lesions: no lesions Rashes: no rashes Extrem: Other: Right knee Aquacel is c/d/i able to dorsifelx and plantarflex. NVI. Procedures Date of Service Date of Service: 05/16/22 Progress Note: A&P Assessment and plan (1) Status post total knee replacement, right: Status: Acute Assessment and Plan: Continue pain mgmnt Begin ASA for dvt ppx begin PT for RTKA- WBAT Dispo planning-Pending PT eval, pain mgmnt Time Spent With Patient Time: Total time managing care of this patient today ____ minutes. Quality Stroke Does the patient have a stroke diagnosis?: No VTE Prior VTE?: No VTE Risk Level:: Medical - moderate - high VTE Device Contraindication: N/A - Device Ordered VTE Drug Contraindication: N/A - Med Ordered
[2022-05-16] MEDS: Calcium + Vitamin D 250 MG TABLET PO (10:35)
[2022-05-16] MEDS: Magnesium Oxide 400 MG TABLET PO (10:36)
--- NOTE | 2022-05-16 13:45 | P.PNIM_ITS ---
Subjective Subjective Date of Service: 05/16/22 Interval History: complaining of difficulty voiding, urinated 200 mL this morning, denies urinary burning or dysuria, Oropeza catheter removed after being placed by Urology a staff member due to prior urethral surgery and retention after total knee replacement, good pain control denies headache, no dizziness, no nausea, no vomiting, no othe r acute issues overnight. Review of Systems Review of Systems: Yes all other systems are reviewed and are negative Physical Exam Vital Signs: Vital Signs: Last Vital Signs Temp 99.8 F 05/16/22 07:48 Pulse 95 05/16/22 07:48 Resp 18 05/16/22 07:48 BP 162/70 H 05/16/22 08:32 Pulse Ox 99 05/16/22 07:48 O2 Del Method 05/16/22 07:48 BMI result Body Mass Index 26.6 Const: Other: Constitutional - Awake and Alert, No apparent distress neck no JVD Cardiovascular - S1S2, RRR, No edema Respiratory - Normal lung expansion, Normal respiratory effort, CTA bilaterally Gastrointestinal - NT / ND; +BS; No rebound or guarding Extremities - right knee dressing in place, no drainage Skin - Warm/Dry Neurological - Alert & oriented x3, symmetrical face, normal speech Psychological - Appropriate affect ? Objective Data Active Medications Acetaminophen (Acetaminophen 325 Mg Tablet) 650 mg PO Q6H PRN PRN Reason: Pain, Mild (Pain Scale 1-3) Last Admin: 05/16/22 00:14 Dose: 650 mg Documented By: INDIRA Ascorbic Acid (Ascorbic Acid 500 Mg Tablet) 500 mg PO DAILY [facility] Last Admin: 05/16/22 07:56 Dose: 500 mg Documented By: YOLIS Aspirin (Aspirin 325 Mg Tablet) 325 mg PO BID [facility] Last Admin: 05/16/22 08:02 Dose: Not Given Documented By: YOLIS Non-Admin Reason: see other administration Calcium Carbonate/Cholecalciferol (Calcium + Vitamin D 250 Mg Tablet) 250 mg PO DAILY [facility] Last Admin: 05/16/22 10:35 Dose: 250 mg Documented By: YOLIS Celecoxib (Celecoxib 200 Mg Capsule) 200 mg PO BID [facility] Last Admin: 05/16/22 07:55 Dose: 200 mg Documented By: YOLIS Docusate Sodium (Docusate Sodium 100 Mg Capsule) 100 mg PO BID [facility] Last Admin: 05/16/22 07:56 Dose: 100 mg Documented By: YOLIS Hydromorphone HCl (Hydromorphone Hcl 0.5 Mg/0.5 Ml Syringe) 0.25 mg IVPUSH Q4H PRN; Protocol PRN Reason: Pain, Severe (Pain Scale 7-10) Last Admin: 05/16/22 13:37 Dose: 0.25 mg Documented By: YOLIS Lidocaine (Lidocaine 4 % Patch Adh..Patch) 1 patch TRANSDERMA DAILY [facility]; Protocol Last Admin: 05/16/22 07:56 Dose: 1 patch Documented By: YOLIS Lisinopril (Lisinopril 10 Mg Tablet) 10 mg PO DAILY [facility]; Protocol Last Admin: 05/16/22 07:55 Dose: 10 mg Documented By: YOLIS Loratadine (Loratadine 10 Mg Tablet) 10 mg PO DAILY PRN PRN Reason: Allergic Symptoms Magnesium Oxide (Magnesium Oxide 400 Mg Tablet) 400 mg PO DAILY [facility] Last Admin: 05/16/22 10:36 Dose: 400 mg Documented By: YOLIS Omeprazole (Omeprazole 20 Mg Capsule.Dr) 20 mg PO DAILY@0630 [facility] Last Admin: 05/16/22 05:34 Dose: 20 mg Documented By: INDIRA Ondansetron HCl (Ondansetron Hcl 4 Mg/2 Ml Vial) 4 mg IVPUSH ONCE PRN PRN Reason: Nausea and Vomiting Ondansetron HCl (Ondansetron Hcl 4 Mg/2 Ml Vial) 4 mg IVPUSH Q8H PRN PRN Reason: Nausea Last Admin: 05/16/22 12:40 Dose: 4 mg Documented By: YOLIS Oxycodone HCl (Oxycodone Hcl Immed Release 5 Mg Tablet) 5 mg PO Q4H PRN PRN Reason: Pain, Moderate (Pain Scale 4-6 Last Admin: 05/16/22 10:36 Dose: 5 mg Documented By: YOLIS Oxycodone HCl (Oxycodone Hcl Er 10 Mg Tab.Er.12h) 10 mg PO BID [facility] Last Admin: 05/16/22 07:55 Dose: 10 mg Documented By: YOLIS Promethazine HCl (Promethazine Hcl 25 Mg Tablet) 25 mg PO Q6H PRN PRN Reason: Nausea Sodium Chloride (0.9 % Sodium Chloride Flush 3 Ml Syringe) 3 ml IVFLUSH QSHIFT [facility] Last Admin: 05/16/22 08:00 Dose: 3 ml Documented By: YOLIS Tizanidine HCl (Tizanidine Hcl 4 Mg Tablet) 4 mg PO BEDTIME PRN PRN Reason: muscle spasm Labs 05/16/22 05:04 05/16/22 05:04 Labs: Laboratory Results - last 24 hr 05/16/22 05/16/22 05:04 05:04 MCV 88.8 MCH 31.0 MCHC 34.9 RDW 12.1 Plt Count 212 MPV 9.6 Immature Gran % (Auto) 0.6 H Neut % (Auto) 80.9 H Lymph % (Auto) 5.8 L [place] % (Auto) 12.5 H Eos % (Auto) 0.1 Baso % (Auto) 0.1 Lymph # (Auto) 0.8 L [place] # (Auto) 1.8 H Eos # (Auto) 0.0 Baso # (Auto) 0.0 Abs Immat Gran (auto) 0.08 H Absolute Neuts (auto) 11.8 H Absolute Nucleated RBC 0.000 Nucleated RBC % (auto) 0.0 Smear Tech's Comments VERIFIED Anion Gap 11 L Estim Creat Clear Calc 100.8 Estimated GFR > 60 Fasting Glucose 139 H Calcium 8.7 Assessment and Plan (1) Status post total knee replacement, right: Status: Acute (2) Difficulty urinating: Status: Acute Plan 66-year-old male with history of anxiety, GERD, hypertension, osteoarthritis admitted to Orthopedic surgery for management of osteoarthritis of left knee s/p left TKA pod 0 with consult placed to hospital service for routine medical management. #Left knee osteoarthritis s/p TKA POD 1 - good pain control, will DC IV fluid, continue aspirin # hypertension - elevated blood pressures question related to fluids, pain, continue lisinopril follow blood pressures # GERD -continue PPI # chronic low back pain - continue tizanidine at bedtime p.r.n. and lidocaine patch #Chronic hyponatremia -Na 128 patient asymptomatic # urinary retention, Oropeza discontinued, continue voiding trial check bladder scan, if greater than 300 consult urology. Thank you for allowing me to participate in this consult. Signing off at this time. Please do not hesitate to call for further question Time Spent With Patient Time: Total time managing care of this patient today ____ minutes. Quality Stroke Does the patient have a stroke diagnosis?: No VTE Prior VTE?: No VTE Risk Level:: Medical - moderate - high VTE Device Contraindication: N/A - Device Ordered VTE Drug Contraindication: N/A - Med Ordered
--- NOTE | 2022-05-16 13:54 | HO.POSTANES ---
Post Anesthesia Evaluation Post Anesthesia Evaluation Vital Signs: Vital Signs Temp Pulse Resp BP Pulse Ox O2 Del Method 05/16/22 08:32 162/70 H 05/16/22 07:57 162/70 H 05/16/22 07:48 99.8 F 95 18 172/81 H 99 Room Air 05/16/22 04:00 98.2 F 90 18 168/82 H 98 Room Air Anesthesia: Spinal and Nerve Block Mental Status: Awake Pain Control: Satisfactory Nausea/Vomiting: None Hydration: Adequate Anesthesia-Related Issues: No Anes. Related Issues
--- NOTE | 2022-05-16 14:46 | MHC.CM.PN ---
IMMM DELIVERED TO PT AT BEDSIDE 05/16/22, EMR REVIEWED PT ADMITTED S/P LEFT TKA, CM MET W/PT WHO IS A&OX4, REPORTS HE LIVES W/HIS AND SON, PT IS INDEP W/ALL CARE, HAS A CANE, WALKER AND GRAB BARS IN BR AND NO HOME SERVICES. PT'S GOAL FOR D/C IS HOME W/SERVICES AND REPORTS HE HAD HIS OTHER KNEE DONE AND DOES NOT ANTIC ANY ISSUES, PT HAS NO PREFERENCE ON VNA'S AND REFERRAL HAS BEEN PLACED TO [facility]. PT VERIFIES PCP DEVONTE VANG, ALLY VACC X 3 AND HCPIS PT'S AMINTA [phone], COPY ON FILE.
--- NOTE | 2022-05-16 16:05 | PC.NURSE ---
Patient voiding in urinal. PVR 0.
[2022-05-16 17:00] LABS: Appearance Urine Clear; Color Urine Yellow; Glucose Urine UA Negative (Negative); Leukocyte Esterase Urine Negative (Negative); Nitrite Urine Negative (Negative); PH 6.5 (5.0-9.0); Specific Gravity - Urine 1.015 (1.005-1.025); Urine Blood Negative (Negative); Urine Ketones Negative (Negative); Urine Protein Trace mg/dL (Neg-Trace)
[2022-05-17] MEDS: Acetaminophen 325 MG TABLET 650 MG PO ×2 (01:22→07:51)
[2022-05-17] MEDS: oxyCODONE HCl Immed Release 5 MG TABLET PO ×3 (01:22→11:54)
[2022-05-17 03:17] VITALS: BP 135/78; PULSE 99; RESP 18; TEMP 36.6; O2SAT 98
[2022-05-17] MEDS: Omeprazole 20 MG CAPSULE.DR PO (05:04)
[2022-05-17 06:28] LABS: Basophils Percent Auto 0.2 % (0-2); Eosinophils Percent Auto 0.2 % (0-4); Hematocrit 32.5 % (42.0-52.0); Hemoglobin 11.5 g/dl (14.0-18.0); Imm Gran Abs Auto 0.08 X10*3/uL (0.00-0.03); Imm Gran Pct Auto 0.6 % (0.0-0.4); Lymphocytes Absolute Auto 1.5 X10*3/uL (1.2-4.9); Lymphocytes Percent Auto 10.6 % (20-40); MANUAL DIFF FLAG SCAN; Mean Corpuscular HGB Conc 35.4 g/dl (31.0-36.0); Mean Corpuscular Volume 90.5 fL (80.0-98.0); Neutrophils Absolute Auto 10.5 x10*3/uL (2.0-8.3); Neutrophils Percent Auto 74.4 % (45-73); Platelet Count 195 X10*3/uL (160-400); Red Blood Count 3.59 X10*6/uL (4.60-5.80); Red Cell Distribution Width 12.1 % (11.0-16.0); SCAN SMEAR FLAG 1; White Blood Count 14.1 X10*3/uL (4.8-10.8)
[2022-05-17 06:45] LABS: Anion Gap 12 (12-20); Blood Urea Nitrogen 9 mg/dL (9-16); Calcium 8.9 mg/dL (8.4-10.2); Carbon Dioxide 26 mmol/L (22-29); Chloride 94 mmol/L (96-108); Creatinine Clr Calc Pharmacy 96.4; Estimated Glomerular Filt Rate > 60; Glucose Fasting 96 mg/dL (60-99); Potassium 4.3 mmol/L (3.3-5.1); Sodium 128 mmol/L (135-145)
[2022-05-17 07:07] LABS: SLIDE REVIEW VERIFIED
[2022-05-17] MEDS: Aspirin 325 MG TABLET PO (07:50)
[2022-05-17] MEDS: Celecoxib 200 MG CAPSULE PO (07:50)
[2022-05-17] MEDS: Docusate Sodium 100 MG CAPSULE PO (07:50)
[2022-05-17] MEDS: Calcium + Vitamin D 250 MG TABLET PO (07:50)
[2022-05-17] MEDS: oxyCODONE HCl ER 10 MG TAB.ER.12H PO (07:50)
[2022-05-17] MEDS: lisinopriL 10 MG TABLET PO (07:51)
[2022-05-17] MEDS: Ascorbic Acid 500 MG TABLET PO (07:51)
[2022-05-17] MEDS: 0.9 % Sodium Chloride Flush 3 ML SYRINGE IVFLUSH (07:52)
[2022-05-17] MEDS: Magnesium Oxide 400 MG TABLET PO (07:52)
[2022-05-17] MEDS: Lidocaine 4 % Patch ADH..PATCH 1 PATCH TRANSDERMA (07:52)
[2022-05-17 08:00] VITALS: BP 176/81; RESP 20; TEMP 37.1; O2SAT 98
--- NOTE | 2022-05-17 08:26 | P.DS_ITS ---
DS: Providers Provider Date of Service: 05/17/22 Primary care physician: Sharonda Parsons MD Consults: 05/15/22 09:07 Consult to Hospitalist Routine Consulting Provider: Hospitalist Reason For Exam: routine medical managment DS: Diagnosis Discharge Diagnosis (1) Status post total knee replacement, right: Status: Acute DS: Summary Hospital Course Hospital Course: The patient underwent a successful Left total knee arthroplasty on 05/15/22, was transferred to PACU and then to the floor to recover. During their stay, their vitals were stable, afebrile at 98.8 . Labs were unremarkable, H/H 11.5/32.5 . POD 1 he was started on ASA 325 mg tabs po bid for DVT ppx, they also received Physical Therapy services twice a day. Physical therapy should include gait training, ROM to tolerance and quad strength. He is WBAT. Prior to discharge, his dressing was changed, incision clean dry and intact, new Aquacel dressing applied. The Aquacel dressing shoulder remain intact and dry at all times. Any concerns with the dressing, please contact orthopedic office. No showering. The plan is to be discharged home with VNA services Time Spent with Patient Time attestation: Total time managing care of this patient today ____ minutes. Discharge coordination time: Less than 30 minutes Quality: Safe Use of Opioids Does Pt have an Active Cancer Diagnosis on the Problem List?: No Quality: Stroke Does the patient have a stroke diagnosis?: No Physical Exam Vital Signs: Vital Signs: Last Vital Signs Temp 98.8 F 05/17/22 08:00 Pulse 99 05/17/22 03:17 Resp 100 H 05/17/22 08:00 BP 176/81 H 05/17/22 08:00 Pulse Ox 98 05/17/22 08:00 O2 Del Method 05/17/22 08:00 BMI result Body Mass Index 26.6 Const: General: cooperative, healthy appearing and no acute distress Resp: Effort & Inspection: normal respiratory effort and able to speak in complete sentences Cardio: Rate: regular rate Peripheral pulses: Peripheral pulses 2+ throughout GI: Palpation (GI): Soft to palpation Skin: Lesions: no lesions Rashes: no rashes Extrem: Other: Right knee Aquacel is c/d/i able to dorsifelx and plantarflex. NVI. DS: Data Data Completed and Pending Completed studies during hospitalization [Text1]: Pending at discharge 05/15/22 08:31 Surgical [PTH] Routine Procedures Replacement of Right Knee Joint with Synthetic Substitute, Uncemented, Open Approach (05/15/21) Labs on day of discharge: Laboratory Results - last 24 hr 05/16/22 05/17/22 05/17/22 16:30 05:03 05:03 WBC 14.1 H RBC 3.59 L Hgb 11.5 L Hct 32.5 L MCV 90.5 MCH 32.0 MCHC 35.4 RDW 12.1 Plt Count 195 MPV 10.0 Immature Gran % (Auto) 0.6 H Neut % (Auto) 74.4 H Lymph % (Auto) 10.6 L [place] % (Auto) 14.0 H Eos % (Auto) 0.2 Baso % (Auto) 0.2 Lymph # (Auto) 1.5 [place] # (Auto) 2.0 H Eos # (Auto) 0.0 Baso # (Auto) 0.0 Abs Immat Gran (auto) 0.08 H Absolute Neuts (auto) 10.5 H Absolute Nucleated RBC 0.000 Nucleated RBC % (auto) 0.0 Smear Tech's Comments VERIFIED Sodium 128 L Potassium 4.3 Chloride 94 L Carbon Dioxide 26 Anion Gap 12 BUN 9 Creatinine 0.68 Estim Creat Clear Calc 96.4 Estimated GFR > 60 Fasting Glucose 96 Calcium 8.9 Urine Color Yellow Urine Appearance Clear Urine pH 6.5 Ur Specific [place] 1.015 Urine Protein Trace Urine Glucose (UA) Negative Urine Ketones Negative Urine Blood Negative Urine Nitrite Negative Ur Leukocyte Esterase Negative Discharge Plan Discharge Patient Disposition: Home Health Service Referrals: Micah BOJORQUEZ [Outside] - 1 Week Tammy Evans PA-C [Physician Translator/Interpreter] - 1 Week (05/30/22 1:15 [facility] Surgeons Tammy Evans PA-C) Discharge Medications: New celecoxib 200 mg Capsule 200 mg PO BID 30 Days Qty: 60 0RF acetaminophen 325 mg Tablet 650 mg PO Q6H PRN (Reason: Pain, Mild (Pain Scale 1-3)) 30 Days Qty: 240 0RF aspirin 325 mg Tablet 325 mg PO BID 42 Days Qty: 84 0RF docusate sodium 100 mg Capsule 100 mg PO BID 14 Days Qty: 28 0RF oxycodone 5 mg Tablet 5 mg PO Q4H PRN (Reason: Pain, Moderate (Pain Scale 4-6) 7 Days Qty: 42 0RF Rx Instructions: Partial Fill upon patient request. Continued multivitamin Tablet 1 tab PO DAILY ascorbic acid (vitamin C) [Vitamin C] 500 mg Tablet 500 mg PO DAILY tizanidine 4 mg tablet 1 tab PO BEDTIME PRN (Reason: muscle spasm) Calcium Magnesium + D 400-167-133 mg-mg-unit Tablet 1 tab PO DAILY sennosides-docusate sodium 8.6-50 mg Tablet 2 tab-cap PO BEDTIME pantoprazole 20 mg tablet,delayed release (DR/EC) 20 mg PO DAILY lisinopril 10 mg tablet 10 mg PO DAILY Zyrtec 10 mg capsule 10 mg PO DAILY PRN (Reason: Allergic Symptoms) Discharge Orders: Discharge Order (Routine); Ordered 05/17/22 Ordered By: Chapincito Gilbert Diet: Regular diet Activity on Discharge: Use cane or walker Activity Restrictions/Additional Instructions: Physical Therapy for Total knee arthroplasty: WBAT, gait training, ROM 0-120 quad strength * Limit stair climbing * No showering, no tub bath-keep dressing clean, dry and intact * No driving x6 weeks * Continue Aspirin twice a day x 6 weeks * Follow up with [facility] Orthopedics in 2 weeks: * --you will also have your first out patient PT tay on the day of your post op appt-so please plan on being in the office that day for an extended period of time. Discharge Date/Time: 05/17/22 13:37
[2022-05-17] MEDS: ondansetron HCL 4 MG/2 ML VIAL IVPUSH (08:41)
--- NOTE | 2022-05-17 09:08 | MHC.CM.PN ---
PT BEING DISCHARGED HOME TODAY WITH [facility] PT TO ARRANGE TRANSPORT
[2022-05-17 09:26] VITALS: BP 176/81; O2SAT 98
== END 2022-05-17 13:37 | disposition home health service (06) ==
LOC: HO.SSS 05:53 → HO.S3 12:44
PROVIDERS: Hospitalist; Physician Assistant; PCP Internal Medicine; Visit Provider Orthopaedic Surgery
PROC: (CPT 27447; principal; 2022-05-15 07:30)
DX: M17.12 Unilateral primary osteoarthritis, left knee (principal); Z96.651 Presence of right artificial knee joint; R11.0 Nausea; R26.9 Unspecified abnormalities of gait and mobility; I10 Essential (primary) hypertension; R39.198 Other difficulties with micturition; R33.9 Retention of urine, unspecified; E87.1 Hypo-osmolality and hyponatremia; K21.9 Gastro-esophageal reflux disease without esophagitis; G89.29 Other chronic pain; M54.50 Low back pain, unspecified; F41.1 Generalized anxiety disorder; Z79.899 Other long term (current) drug therapy; Z88.8 Allergy status to other drugs, medicaments and biological substances; Z20.822 Contact with and (suspected) exposure to COVID-19; Z98.890 Other specified postprocedural states
CPT/HCPCS: 27447; 36415; 73560; 80048; 81003; 85014; 85018; 85025; 86850; 86900; 86901; 87635; 87640; 87641; 88305; 88311; 97110; 97116; 97162; C1776; J0690; J1170; J2250; J2370; J2405; J2795

== ENCOUNTER → 2022-05-30 13:09 | Outpatient (BNVA) | payer MEDICARE, SELFPAY | PROVIDERS: PCP Internal Medicine; Visit Provider Physician Assistant | DX: M25.562 Pain in left knee (principal); Z96.653 Presence of artificial knee joint, bilateral | CPT/HCPCS: 99212 ==

== ENCOUNTER → 2022-06-27 13:47 | Outpatient (BNVA) | payer MEDICARE, SELFPAY | PROVIDERS: PCP Internal Medicine; Visit Provider Physician Assistant | DX: Z96.652 Presence of left artificial knee joint (principal) | CPT/HCPCS: 99212 ==

== ENCOUNTER 2022-07-05 11:00 | Outpatient (RCR) | payer MEDICARE, SELFPAY ==
--- NOTE | 2022-05-30 14:34 | MHC.PT.EP ---
[facility] [place] Office [place] Office [place] Office [address] Radha Andrade [address] [phone] F: [phone] F: [phone] F: [phone] F: [phone] Physical Therapy Plan of Care Date of Evaluation: Date of Surgery: 05/15/22 Diagnosis: S/P LEFT TKA Assessment: 67 YO MALE REF TO PT S/P Lt TKR ON 05/15/22- HE RESIDES W HIS SPOUSE IN A CONDO-> 2ND FLOOR W STAIRS W BILAT RAILINGS AND IS CURRENTLY AMB W A CANE. HE HAS A H/O Rt TKA APPROX 1 YR AGO. OBJECTIVE FINDINGS: LIMITED AROM Lt KNEE FLEX, TIGHT PSOAS MM NAILA AND DECR ANKLE DF NAILA; DECR STRENGTH IN PROX / LUMBOPELVIC AND Lt LE, POST-OP PAIN IN LEFT KNEE ,AND HEALING ANT Lt KNEE INCISION. FUNCTIONALLY, Pt IS AMB W A CANE- HE HAS COMPENSATORY GAIT, MODIFIED STAIR MGMT, DECR STANDING, AND SOME DECR IRWIN TO ADLs REQ Lt KNEE FLEX. Pt IS A VERY GOOD PT CANDIDATE TO GUIDE HIM IN HIS POST-OP TKR COURSE, ADDRESSING THE ABOVE FINDINGS, PAIN MGMT, AND MAXIMIZING FUNCTIONAL INDEPENDENCE. Frequency and Duration: The patient will be seen 2 x WK x 10 WKS Short Term Goals: *Pt'S LEFT KNEE PAIN DECR TO 2-3/10 *Pt INCREASE Lt KNEE ROM -> 0* EXTEN AND PROGRESSIVELY TO 120* FLEX *INCR FLEXIB IN PSOAS/ CALF MM TO IMPROVE EFFICIENCY OF GAIT ON LEVEL AND STAIRS-> MONITOR LLI , Pt HAS H/O Rt TKA *REDUCE Lt LE EDEMA AND MONITOR/ ADDRESS SCAR MOB NEEDED [employer] Analyst Goals: Pt INDEP W HEP PROGRESSION AND SELF-SX MGMT STRATEGIES IN 10 WKS Pt RESUME REG ADLs EVIDENT W IMPROVED LEFI SCORE BY 8-10 POINTS IN 10 WKS Pt INCR LE STRENGTH BY 1 GRADE IN 10 WKS Treatment Plan: Modalities to reduce pain, spasms and effusion. Manual therapy to restore motion and function. Therapeutic exercise to improve strength and flexibility. Neuromuscular re-education for posture and balance. Therapeutic activities to return to functional activities of daily living. Electronically signed by: ANA PAULA MONROE PT Please sign and return to therapist. Thank you for your referral.
--- NOTE | 2022-08-05 13:05 | MHC.PT.DC ---
[facility] [place] Office [place] Office [place] Office [address] Radha Andrade [address] [phone] F: [phone] F: [phone] F: [phone] F: [phone] Physical Therapy Discharge Report Diagnosis: S/P LEFT TKA Date of Surgery: 05/15/22 Date of Evaluation: 05/30/22 Date of Discharge: 08/05/22 Treatments to Date: 11 Cancellations to Date: 0 No Shows to Date: 0 Discharge Status: Achieved Goals Improved Function Independent with HEP Discharge Summary: Patient has no more appointments booked, does not feel either way about continuing PT. He demos 0-138 ROM and 5/5 hip flexion, hip abduction, knee flexion/ext and 4+/5 hip rotation. At this point he feels like he can do his HEP on his own. His chart was kept open for 30 days and then DC'd. Electronically signed by: Raine Foster PT Please sign and return to therapist. Thank you for your referral.
== END 2022-08-05 13:06 | disposition home or self-care (01) ==
LOC: HO.PTCHIC 11:00
PROVIDERS: Visit Provider Physician Assistant
DX: Z96.651 Presence of right artificial knee joint (principal)
CPT/HCPCS: 97110; 97140; 97161; 97530

== ENCOUNTER 2022-08-08 11:29 | Outpatient (REF) | payer MEDICARE, SELFPAY ==
--- NOTE | ~2022-08-08 | XR_ITS ---
EXAMINATION: Knee x-ray CLINICAL INFORMATION: Pain COMPARISON: Previous x-ray 201905/06/2022 TECHNIQUE: Standing AP view of both knees and lateral and sunrise view of the left knee FINDINGS: Right: There is a right knee replacement in satisfactory position. This appears unchanged from July 2021. Left: There is a 3 component left knee replacement. No fracture or dislocation. There is a joint effusion. There is anterior soft tissue swelling. XR/XR knee standing BI IMPRESSION: Left: Satisfactory appearance of left knee replacement. Joint effusion and anterior soft tissue swelling. Satisfactory appearance of right knee replacement.
--- NOTE | ~2022-08-08 | XR_ITS ---
EXAMINATION: Knee x-ray CLINICAL INFORMATION: Pain COMPARISON: Previous x-ray 201905/06/2022 TECHNIQUE: Standing AP view of both knees and lateral and sunrise view of the left knee FINDINGS: Right: There is a right knee replacement in satisfactory position. This appears unchanged from July 2021. Left: There is a 3 component left knee replacement. No fracture or dislocation. There is a joint effusion. There is anterior soft tissue swelling. XR/XR knee LT 2V IMPRESSION: Left: Satisfactory appearance of left knee replacement. Joint effusion and anterior soft tissue swelling. Satisfactory appearance of right knee replacement.
== END 2022-08-08 11:30 | disposition home or self-care (01) ==
LOC: HO.HOSX 11:29
PROVIDERS: Visit Provider Orthopaedic Surgery
DX: M25.562 Pain in left knee (principal); M79.662 Pain in left lower leg; Z96.652 Presence of left artificial knee joint
CPT/HCPCS: 73560; 73565; 99212